=== PATIENT | male | born 1950 | race Caucasian/White ===

== ENCOUNTER 2018-02-09 21:54 | Inpatient (IN) ==
[2018-02-09] MEDS ORDERED: methylPREDNISolone 125 MG/2 ML VIAL IVP ONE (22:16)
[2018-02-09] MEDS ORDERED: Ipratropium/Albuterol Neb 3 ML IH ONE (22:16)
--- NOTE | 2018-02-09 23:04 | Emergency Department Note ---
Disposition Clinical Impression: Acute exacerbation of chronic obstructive airways disease, Abdominal aortic aneurysm (AAA) without rupture, Kidney stone on left side Community acquired pneumonia Qualifiers: Laterality: unspecified laterality Qualified Code(s): J18.9 - Pneumonia, unspecified organism Disposition: Admitted As Inpatient Condition: Good Time of Disposition: 01:21 General Adult HPI - General Stated complaint: "confirmed triple A" Time Seen by Provider: 02/09/18 21:58 Source: patient, EMS Mode of arrival: EMS Limitations: no limitations Nursing Notes Reviewed: Yes Vital Signs Reviewed: Yes - History of Present Illness HPI Narrative: 67-year-old male current smoker presents to the ED via EMS from the [place]. Patient 's initial complaint today was shortness of breath and pain in the left flank. States over the past 4 weeks he has been having a cough some chills congestion and has been gradually more short breath. He states a few of his friends around him have been getting sick with what he believes is the flu. None of him tested positive. Since then, past 2 weeks he developed cough and left side pain. Today at the [place] he had a CT of the abdomen and pelvis to evaluate his flank pain and he was found to have a 1.9 cm stone in the renal pelvis. It was incidental finding of a 5.2 cm aortic fusiform infrarenal aneurysm without signs of rupture. It extends 7.6 cm in craniocaudal plane. Patient is not aware of any history of AAA. Also on the CT there was findings concerning for infection in the left lung base. Chest x-ray was performed to better visualize which confirmed atelectasis versus possible infection. Given his symptoms he will be treated for community acquired pneumonia. He denies hematuria or dysuria. He does report to some hesitancy. On exam he is wheezing and dyspnea. He has no official diagnosis of COPD but given his history of smoking DuoNeb treatment ordered. He will be given steroids as well. States he is otherwise healthy without any medical issues. Pain Scale: 3 - Related Data Allergies Allergy/AdvReac Type Severity Reaction Status Date / Time No Known Allergies Allergy Verified 02/09/18 22:21 All systems ED: reviewed and negative except as stated. Review of Systems: As Per HPI Constitutional: Reports: chills. Denies: fever ENT ED: Reports: congestion Cardiovascular: Denies: chest pain Respiratory: Reports: cough, dyspnea Gastrointestinal: Reports: abdominal pain. Denies: nausea, vomiting Genitourinary: Denies: urgency, dysuria, hematuria, discharge Musculoskeletal: Reports: back pain Integumentary: Denies: rash, abrasion Neurological: Denies: headache Past Medical History - Past Medical History Attestation: Yes The following information was validated with the patient. Source: patient Medical history: Reports: no medical history Psychiatric history: Reports: no psych history - Social History Smoking Status: Current every day smoker Smokeless Tobacco Status: No Alcohol use: Reports: none Drug use: Reports: none Physical Exam - General Limitations: no limitations General appearance: alert, in no apparent distress - Head Head exam: atraumatic, normocephalic, normal inspection - Eye Eye exam: Present: normal appearance, PERRL, EOMI - ENT ENT exam: normal exam, normal oropharynx, mucous membranes moist - Neck Neck exam: Present: normal inspection, full ROM, trachea midline - Chest Chest inspection: Present: normal inspection, symmetric chest wall rise, tenderness (left lateral) - Respiratory Respiratory exam: Present: wheezes. Absent: respiratory distress - Cardiovascular Cardiovascular exam: Present: regular rate, normal rhythm, normal heart sounds - Abdominal Exam Abdominal exam: Present: soft (obese), Non-Tender, normal bowel sounds. Absent : tenderness, distention, guarding, rebound, rigidity, Russo's sign, Rovsing's sign, tenderness at McBurney's Point, mass, pulsatile mass - Extremities Exam Extremities exam: Present: normal inspection, full ROM. Absent: tenderness, pedal edema - Back Exam Back exam: Present: normal inspection, full ROM, CVA tenderness (L). Absent: tenderness, CVA tenderness (R) - Neurological Exam Neurological exam: Present: alert, oriented X3 - Psychiatric Psychiatric exam: Present: normal affect, normal mood - Skin Skin exam: Present: warm, dry, intact, normal color. Absent: rash, cyanosis, diaphoresis Course Course Narrative: On repeat evaluation has some scattered wheezing on the right clear on the left. Patients feeling much better. Discuss the CT findings with the patient. He would be admitted for likely community acquired pneumonia with COPD exacerbation. Treated with ceftriaxone and azithromycin. Blood cultures obtain. Urinalysis is not consistent with infection. Patients in agreement with this plan. He also has incidental finding of a 5.2 cm x 5.2 cm aortic aneurysm as well as a 1.9 cm renal pelvis stone. The admitting hospitalist is aware these findings. No emergent interventions required at this time. Patient remains in stable condition. - Consultations Consultation #1: Spoke with on-call hospitalist alejandro Davies to admit for CAP/COPD exacerbation , incidental AAA which may require inpatient vascular consult. No further orders at this time Time: 00:35 Vital Signs Temperature 98.8 F 02/09/18 22:02 Pulse Rate 103 02/09/18 22:02 Respiratory Rate 18 02/09/18 22:02 Blood Pressure 167/114 02/09/18 22:02 O2 Sat by Pulse Oximetry 95 02/09/18 22:02 Temperature 98.4 F 02/10/18 02:57 Pulse Rate 101 02/10/18 01:38 Respiratory Rate 18 02/10/18 02:57 Blood Pressure 158/96 02/10/18 02:57 O2 Sat by Pulse Oximetry 95 02/10/18 01:38 Oxygen Delivery Oxygen Delivery Room Air Medical Decision Making - MDM Narrative Medical decision making narrative: Patient was discussed with my attending physician who agrees with ED management and final disposition. They independently evaluated the patient. Please refer to their attestation to this encounter for additional information. This note was generated by [employer] voice recognition software and as a result grammatical or spelling errors may occur using this program. - Medical Records Medical records reviewed: Yes I reviewed the patient's medical records. - Lab Data Lab results reviewed: Yes I reviewed the patient's lab results. Lab results narrative: Review of the labs perform at the [place] at 1502 on 02/09/2018. Sodium 139. Potassium 3.7. Chloride 105. CO2 28. BUN 18. Creatinine 1.21. WBC 9.2. Hemoglobin 7.1. Lab Results 02/09/18 02/10/18 Range/Units 23:12 00:25 Lactic Acid 0.8 (0.5-2.2) mmol/L Urine Color Yellow (Yellow) Urine Clarity Clear (Clear) Urine pH 6.0 (5.0-8.0) pH Units Ur Specific [place] > 1.030 H (1.010-1.025) Urine Protein 30 H (Neg-Trace) mg/dL Urine Glucose (UA) Normal (Normal) mg/dL Urine Ketones Negative (Negative) mg/dL Urine Blood Large H (Negative) Urine Nitrite Negative (Negative) Urine Bilirubin Negative (Negative) Urine Urobilinogen Normal (Normal) mg/dL Ur Leukocyte Esterase Small H (Negative) Urine Microscopic RBC TNTC H (0-3) per hpf Urine Microscopic WBC 5-15 H (0-3) per hpf Ur Squamous Epith Cells Moderate H (None-Few) per lpf Urine Bacteria None Seen (None-Few) per hpf Hyaline Casts None Seen (None-Few) per lpf Ur Culture Indicated? YES A (NO) - Radiology Data Radiology results reviewed: Yes I reviewed the patient's radiology results. [facility]. Impression is infrarenal fusiform abdominal aorta aneurysm 5.2 cm AP x 5.2 cm transverse that extends for 7.6 cm in craniocaudal plan. Consider vascular surgery referral and/or 3-6 month follow up imaging. There is no periaortic stranding. Left-sided hydronephrosis with nephrolithiasis and mild stranding. Bibasilar atelectasis with streaky opacity cannot exclude superimposed infection.
[2018-02-09 23:28] LABS: Bilirubin,Urine Negative (Negative); Blood,Urine Large (Negative); Clarity,Urine Clear (Clear); Color,Urine Yellow (Yellow); Glucose,Urine (UA) Normal (Normal); Ketones,Urine Negative (Negative); Leukocyte Esterase,Urine Small (Negative); Nitrite,Urine Negative (Negative); Protein,Urine 30 mg/dL (Neg-Trace); Specific Gravity,Urine > 1.030 (1.010-1.025); Urobilinogen,Urine Normal (Normal)
[2018-02-09] MEDS ORDERED: Azithromycin 500 MG in D5% in Water 250 ML IVPB ONE (23:29)
[2018-02-09] MEDS ORDERED: cefTRIAXone 2,000 MG in Water for inj. (sterile) 20 ML 20 ML IVPB ONE (23:29)
[2018-02-09 23:30] LABS: Bacteria,Urine None Seen per hpf (None-Few); Hyaline Casts,Urine None Seen per lpf (None-Few); RBC,Urine TNTC per hpf (0-3); Squamous Epithelial Cell,Urine Moderate per lpf (None-Few)
--- NOTE | 2018-02-10 01:29 | Emergency Department Note ---
Disposition Clinical Impression: Acute exacerbation of chronic obstructive airways disease Community acquired pneumonia Qualifiers: Laterality: unspecified laterality Qualified Code(s): J18.9 - Pneumonia, unspecified organism Disposition: Admitted As Inpatient Condition: Good [facility]errals: [facility]Primary Care Provider[facility] - General Adult [facility] - General Chief complaint: ED Shortness of Breath/Dyspnea Stated complaint: "confirmed triple A" Time Seen by Provider: 02/09/18 21:58 Source: patient, EMS Mode of arrival: EMS Limitations: no limitations Nursing Notes Reviewed: Yes Vital Signs Reviewed: Yes - History of Present Illness Pain Scale: 3 - Related Data Allergies Allergy/AdvReac Type Severity Reaction Status Date / Time No Known Allergies Allergy Verified 02/09/18 22:21 Constitutional: Reports: chills. Denies: fever ENT ED: Reports: congestion Cardiovascular: Denies: chest pain Respiratory: Reports: cough, dyspnea Gastrointestinal: Reports: abdominal pain. Denies: nausea, vomiting Genitourinary: Denies: urgency, dysuria, hematuria, discharge Musculoskeletal: Reports: back pain Integumentary: Denies: rash, abrasion Neurological: Denies: headache Past Medical History - Past Medical History Medical history: Reports: no medical history Psychiatric history: Reports: no psych history - Social History Smoking Status: Current every day smoker Smokeless Tobacco Status: No Alcohol use: Reports: none Drug use: Reports: none Physical Exam - General Limitations: no limitations General appearance: alert, in no apparent distress Course Vital Signs Temperature 98.8 F 02/09/18 22:02 Pulse Rate 103 02/09/18 22:02 Respiratory Rate 18 02/09/18 22:02 Blood Pressure 167/114 02/09/18 22:02 O2 Sat by Pulse Oximetry 95 02/09/18 22:02 Temperature 98.8 F 02/09/18 22:02 Pulse Rate 103 02/09/18 22:02 Respiratory Rate 16 02/09/18 22:36 Blood Pressure 167/114 02/09/18 22:02 O2 Sat by Pulse Oximetry 95 02/09/18 22:36 Oxygen Delivery Oxygen Delivery Room Air Medical Decision Making - Lab Data Lab Results 02/09/18 02/10/18 Range/Units 23:12 00:25 Lactic Acid 0.8 (0.5-2.2) mmol/L Urine Color Yellow (Yellow) Urine Clarity Clear (Clear) Urine pH 6.0 (5.0-8.0) pH Units Ur Specific [place] > 1.030 H (1.010-1.025) Urine Protein 30 H (Neg-Trace) mg/dL Urine Glucose (UA) Normal (Normal) mg/dL Urine Ketones Negative (Negative) mg/dL Urine Blood Large H (Negative) Urine Nitrite Negative (Negative) Urine Bilirubin Negative (Negative) Urine Urobilinogen Normal (Normal) mg/dL Ur Leukocyte Esterase Small H (Negative) Urine Microscopic RBC TNTC H (0-3) per hpf Urine Microscopic WBC 5-15 H (0-3) per hpf Ur Squamous Epith Cells Moderate H (None-Few) per lpf Urine Bacteria None Seen (None-Few) per hpf Hyaline Casts None Seen (None-Few) per lpf Ur Culture Indicated? YES A (NO) Attestation Statement - Attestation Attestation: I, Eduardo Balbuena MD, personally evaluated this patient and discussed their management with the resident physician. I reviewed the resident's note and agree with the documented findings, medical decision making, and plan of care. 67-year-old male who [facility] which revealed a left lower lobe pneumonia as well as incidental findings of a large left kidney stone and a 5.2 cm abdominal aortic aneurysm. No evidence of leakage or dissection of the aneurysm. Patient was unaware of either of these findings. Patient states that about a month ago he had flu symptoms and thought he had the flu. He got over this and then about 2 weeks ago started having some left upper posterior flank pain. He has had some cough. No definite fever. This is why [place] went [place] for [place]. On examination patient is a well-developed well-nourished well-appearing elderly male in no acute distress. He is alert and oriented 3. There is no cyanosis or diaphoresis. Chest is nontender to palpation. Breath sounds are equal bilaterally with scattered bilateral expiratory wheezes. No definite rales. Heart regular rate and rhythm. Abdomen is soft and nontender with normal bowel sounds. Mild left CVA tenderness. Labs and imaging. [facility]. Urinalysis obtained here and showed blood in the urine but no infection. Lactic acid normal. The hospitalist, Dr. Calle, was consulted and accepted admission of the patient.
[2018-02-10] MEDS ORDERED: Naloxone 0.4 MG/ML INJ IVP PRN (03:12)
[2018-02-10] MEDS ORDERED: Acetaminophen 325 MG TABLET PO PRN (03:12)
[2018-02-10] MEDS ORDERED: Ipratropium/Albuterol Neb 3 ML IH PRN (03:17)
[2018-02-10] MEDS: Aspirin Enteric Coated 81 MG Tablet PO SCH ×2 (04:01→08:44)
[2018-02-10] MEDS: *HR* HYDROcodone/Acet 5/325 mg TABLET PO PRN ×3 (04:01→21:05)
[2018-02-10] MEDS: Ipratropium/Albuterol Neb 3 ML IH SCH ×4 (04:26→21:59)
[2018-02-10 04:37] LABS: Basophils % 0.2 %; Eosinophils % 0.1 %; Hematocrit 49.2 % (37.5-50.1); Hemoglobin 17.2 g/dL (12.9-16.9); Immature Granulocytes % 0.7 % (0-4); Lymphocytes # 0.4 K/mcL (0.6-4.6); Lymphocytes % 4.6 %; Mean Corpuscular Hemoglobin 31.1 pg (28.0-33.3); Mean Platelet Volume 10.5 fL (9.4-12.4); Monocytes # 0.1 K/mcL (0.0-1.3); Monocytes % 1.3 %; Neutrophils # 7.9 K/mcL (1.6-8.9); Platelet Count 316 K/mcL (140-400); Red Blood Count 5.53 M/mcL (4.19-5.50); Red Cell Distribution Width 13.2 % (11.5-14.5); Segmented Neutrophils % 93.1 %
[2018-02-10 04:59] LABS: BUN/Creatinine Ratio 15 (6-26); Blood Urea Nitrogen 16 mg/dL (8-23); Calcium 9.7 mg/dL (8.6-10.3); Carbon Dioxide 23 mEq/L (23-29); Chloride 103 mEq/L (98-107); Glucose 157 mg/dL (70-105); Osmolality,Calculated 288 (280-300); Potassium 3.7 mEq/L (3.5-5.1); Sodium 137 mEq/L (136-145); eGFR For African Americans > 60 (> 60); eGFR For Non-African Americans > 60 (> 60)
--- NOTE | 2018-02-10 05:18 | Internal Med History&Physical ---
Date of Encounter: 02/10/18 Time of Encounter: 02:00 Internal Medicine - H&P: HPI Chief complaint: Left flank pain Admitted From: Home Plans for Post Hospital Care: Home History of present illness: Mr. Jiménez is a 67 year old male transferred from [facility] to our ER for left flank pain. Past medical history is significant for hypertension, COPD. Patient said he has left-sided flank pain for 2 weeks. Patient denies a fever. Patient denies dysuria, burning on urination, or other urinating symptoms. Patient denies nausea. Patient denies chest pain. Patient to have flulike symptoms for 2 weeks with productive cough and mild shortness of breath. Patient has exertional intolerance for last 2 weeks and would like to lift head during sleep. In [facility], CAT scan shows left side kidney stone with mild hydronephrosis. Incidentally he was found abdominal aortic aneurysm with diameter of 5.2 cm. Chest x-ray shows possible left lower lobe pneumonia. CT favorite pulmonary edema. Patient was found A. fib in our ER, he has no history of A. fib. Patient has wheezing, which improved after bronchodilator. Patient was admitted for multiple medical problems including new A. fib, left renal stone with UTI, left lower lobe pneumonia, abdominal aortic aneurysm, COPD exacerbation, and possible CHF. Past Med Surg Social Fam HX - Past Medical History Medical history: no medical history Psychiatric history: no psych history - Past Surgical History Surgical History: appendectomy - Social History Smoking Status: Current every day smoker Smokeless Tobacco Status: No Alcohol use: none Drug use: none - Family History Mother History Unknown: Yes Internal Medicine - H&P: Meds 3 Allergy/AdvReac Type Severity Reaction Status Date / Time No Known Allergies Allergy Verified 02/09/18 22:21 All Systems PM: A 10-system review of systems was performed and is negative for pertinent findings except as documented above in the HPI. - Constitutional Vitals: Temp Pulse Resp BP Pulse Ox 98.5 F 108 16 143/84 98 02/10/18 04:59 02/10/18 04:59 02/10/18 04:59 02/10/18 04:59 02/10/18 04:59 General appearance: Present: A&O X 3, no acute distress, answers questions appropriately - Head Head exam: Present: atraumatic, normocephalic - Eye Eye exam: Present: PERRL, conjuntiva pink, sclera anicteric Pupils: Present: PERRL - Neck Neck exam general surgery: Present: supple, trachea midline. Absent: lymphadenopathy - Respiratory Respiratory exam: Present: CTAB, wheezes (Scattered wheezes bilaterally). Absent: accessory muscle use, rales, rhonchi - Cardiovascular Cardiovascular exam: Present: irregular rhythm, +S1, +S2. Absent: diastolic murmur, gallop, rubs, systolic murmur - GI/Abdominal GI/Abdominal exam: Present: normal bowel sounds, soft, tenderness (Milder tenderness on left upper quadrant, with CVAT positive), no peritoneal signs. Absent: distended - Extremities Exam Extremities exam: Present: pedal edema (Mild to moderate pedal edema bilaterally ), warm, radial pulses palpable and symmetrical. Absent: calf tenderness, cyanotic - Neurological Exam Neurological exam: Present: CN II-XII intact, oriented X3, no focal deficits. Absent: pronater drift, facial droop, speech deficit - Skin Skin exam: Present: dry, intact Internal Med - H&P Results - Labs CBC & Chem 7: 02/10/18 04:20 02/10/18 04:20 Labs: Short CBC 02/10/18 Range/Units 04:20 WBC 8.5 (4.3-11.1) K/mcL Hgb 17.2 H (12.9-16.9) g/dL Hct 49.2 (37.5-50.1) % Plt Count 316 (140-400) K/mcL Neutrophils # 7.9 (1.6-8.9) K/mcL BMP 02/10/18 04:20 Sodium 137 Potassium 3.7 Chloride 103 Carbon Dioxide 23 BUN 16 Creatinine 1.06 Glucose 157 H Calcium 9.7 - EKG Data -: EKG Interpreted by Myself (A. fib, heart rate 99) - Assessment and plan (1) A-fib Current Visit: Yes Status: Acute Assessment and plan: Patient was found A. fib with heart rate 99. No history of A. fib. - Place patient on continuous cardiac monitoring - CHADS-Vasc score 2, place patient on aspirin by mouth - Consult cardiology, further long-term anticoagulation per cardiology recommendation Qualifiers: Atrial fibrillation type: unspecified Qualified Code(s): I48.91 - Unspecified atrial fibrillation (2) DVT prophylaxis Current Visit: Yes Status: Acute Assessment and plan: Heparin subcutaneously (3) CHF (congestive heart failure) Current Visit: Yes Status: Acute Assessment and plan: Patient has recent exertional intolerance, leg swelling bilaterally, CT suggested pulmonary edema. Suspect CHF. - Check BNP in a.m. - Echocardiogram - Start Lasix IV 20 mg daily now, may discontinue if BNP and echo are negative Qualifiers: Heart failure type: unspecified Heart failure chronicity: acute Qualified Code(s): I50.9 - Heart failure, unspecified (4) Abdominal aortic aneurysm (AAA) without rupture Current Visit: Yes Status: Acute Assessment and plan: We will consult vascular surgeon. Non urgent, day team to call (5) Acute exacerbation of chronic obstructive airways disease Current Visit: Yes Status: Acute Assessment and plan: We will place patient on antibiotic, steroid, and bronchodilator. Continue closely monitor patient. Oxygen supportive treatment. (6) Community acquired pneumonia Current Visit: Yes Status: Acute Assessment and plan: Patient will be placed on azithromycin and Rocephin. Qualifiers: Laterality: left Lung location: lower lobe of lung Qualified Code(s): J18.1 - Lobar pneumonia, unspecified organism (7) Kidney stone on left side Current Visit: Yes Status: Acute Assessment and plan: We will consult urology, nonurgent as patient has mild hydronephrosis without leukocytosis, day shift to call (8) UTI (urinary tract infection) Current Visit: Yes Status: Acute Assessment and plan: Urinalysis shows UTI. Patient is on Rocephin now. Follow-up urine culture. Qualifiers: Urinary tract infection type: acute cystitis Hematuria presence: without hematuria Qualified Code(s): N30.00 - Acute cystitis without hematuria - Time Spent With Patient Total time spent is greater than 50% in coordination of care (as documented) at patient's floor/unit and/or counseling patient: 40 minutes Greater than 35 minutes
[2018-02-10] MEDS: *HR* Heparin 5,000 UNIT/ML VIAL SQ SCH ×2 (05:58→18:13)
--- NOTE | 2018-02-10 07:51 | Urology - Consult Note ---
Date of Encounter: 02/10/18 Time of Encounter: 07:49 - Assessment and Plan (1) Kidney stone on left side Current Visit: Yes Status: Acute Assessment and plan: Patient has a large 3 cm left renal stone. This is causing very mild hydronephrosis. Pain is currently controlled. This stone will be managed as an outpatient. He will require a percutaneous nephrolithotomy for removal of the stone. I will obtain a KUB today to see if I am able to see the stone. (2) UTI (urinary tract infection) Current Visit: Yes Status: Acute Assessment and plan: Continue antibiotics until culture returned. Sometimes large renal stones can be associated with chronic urinary tract infections. Qualifiers: Urinary tract infection type: acute cystitis Hematuria presence: without hematuria Qualified Code(s): N30.00 - Acute cystitis without hematuria (3) Hydronephrosis, left Current Visit: Yes Status: Acute Assessment and plan: mild. no urgent need for decompression with nephrostomy tube. Urology CN:HPI Consult date: 02/10/18 Reason for consult Urology: Other (left renal stone) Requesting physician: Vee Calle History of present illness: Bryce is a 67-year-old male with history of being transferred from the [place] secondary to multiple medical issues. Patient with possible pneumonia. Patient also found to have a abdominal aortic aneurysm. Patient also found to be in atrophic fibrillation. Patient was found to have a 3 cm left renal stone with minimal hydronephrosis. Patient states that his pain is currently a 0 out of 10. No nausea or vomiting. No fevers. CT scan from the [place] was personally reviewed. Patient is a current smoker and smokes roughly 1 pack per day. Past Med Surg Social Fam HX - Past Medical History Medical history: no medical history Psychiatric history: no psych history - Past Surgical History Surgical History: appendectomy - Social History Smoking Status: Current every day smoker Smokeless Tobacco Status: No Alcohol use: none Drug use: none - Family History Mother History Unknown: Yes Medications and Allergies 3 Allergy/AdvReac Type Severity Reaction Status Date / Time No Known Allergies Allergy Verified 02/09/18 22:21 Review of Systems - Constitutional no chills, no fever(s) - EENT Nose, mouth and throat: no dizziness, no headache(s) - Cardiovascular no chest pain - Respiratory dyspnea, no cough - Gastrointestinal no abdominal pain - Musculoskeletal back pain - Integumentary no erythema, no swelling - Neurological no confusion - Hematologic/Lymphatic no lymphadenopathy - Allergic/Immunologic no throat swelling Exam Initial Vital Signs Temp Pulse Resp BP Pulse Ox 98.8 F 103 18 167/114 95 02/09/18 22:02 02/09/18 22:02 02/09/18 22:02 02/09/18 22:02 02/09/18 22:02 General/Neuological: alert and oriented x 3 Eyes: normal pupils, non-icteric Neck: no lymphadenopathy noted, supple to touch, no jvd Cardiovascular: RRR, no murmurs Respiratory: normal respiratory effort, clear bilaterally ABD: soft, nontender, no masses palpated, good bowel sounds Back: no pain on percussion bilaterally : normal phallus, normal scrotum, testicles and epididymides normal, urethral meatus normal. Skin: no rashes noted Musculoskeletal: normal gait, FROMx4 Urology Results - Labs 02/10/18 04:20 02/10/18 04:20 Abnormal lab results RBC 5.53 M/mcL (4.19-5.50) H 02/10/18 04:20 Hgb 17.2 g/dL (12.9-16.9) H 02/10/18 04:20 Lymphocytes # 0.4 K/mcL (0.6-4.6) L 02/10/18 04:20 Glucose 157 mg/dL (70-105) H 02/10/18 04:20 B-Natriuretic Peptide 559 pg/mL (Less than 100) H 02/10/18 04:20 Ur Specific [place] > 1.030 (1.010-1.025) H 02/09/18 23:12 Urine Protein 30 mg/dL (Neg-Trace) H 02/09/18 23:12 Urine Blood Large (Negative) H 02/09/18 23:12 Ur Leukocyte Esterase Small (Negative) H 02/09/18 23:12 Urine Microscopic RBC TNTC per hpf (0-3) H 02/09/18 23:12 Urine Microscopic WBC 5-15 per hpf (0-3) H 02/09/18 23:12 Ur Squamous Epith Cells Moderate per lpf (None-Few) H 02/09/18 23:12 Ur Culture Indicated? YES (NO) A 02/09/18 23:12 Diabetes panel 02/10/18 Range/Units 04:20 Sodium 137 (136-145) mEq/L Potassium 3.7 (3.5-5.1) mEq/L Chloride 103 (98-107) mEq/L Carbon Dioxide 23 (23-29) mEq/L BUN 16 (8-23) mg/dL Creatinine 1.06 (0.70-1.30) mg/dL Glucose 157 H (70-105) mg/dL Calcium 9.7 (8.6-10.3) mg/dL Thyroid panel 02/10/18 Range/Units 04:20 TSH 0.680 (0.340-5.600) mcIU/mL Calcium panel 02/10/18 Range/Units 04:20 Calcium 9.7 (8.6-10.3) mg/dL Pituitary panel 02/10/18 Range/Units 04:20 Sodium 137 (136-145) mEq/L Potassium 3.7 (3.5-5.1) mEq/L Chloride 103 (98-107) mEq/L Carbon Dioxide 23 (23-29) mEq/L BUN 16 (8-23) mg/dL Creatinine 1.06 (0.70-1.30) mg/dL Glucose 157 H (70-105) mg/dL Calcium 9.7 (8.6-10.3) mg/dL TSH 0.680 (0.340-5.600) mcIU/mL Adrenal panel 02/10/18 Range/Units 04:20 Sodium 137 (136-145) mEq/L Potassium 3.7 (3.5-5.1) mEq/L Chloride 103 (98-107) mEq/L Carbon Dioxide 23 (23-29) mEq/L BUN 16 (8-23) mg/dL Creatinine 1.06 (0.70-1.30) mg/dL Glucose 157 H (70-105) mg/dL Calcium 9.7 (8.6-10.3) mg/dL All other labs normal. - Imaging CT scan - abdomen: image reviewed CT scan - pelvis: image reviewed Consult Discharge Plan - Plan
[2018-02-10] MEDS: Furosemide 20 MG/2 ML VIAL IVP SCH (08:44)
[2018-02-10] MEDS: predniSONE 20 MG TABLET PO SCH (08:44)
[2018-02-10] MEDS ORDERED: *HR* Metoprolol 5 MG/5 ML VIAL IVP ONE (10:44)
--- NOTE | 2018-02-10 12:50 | Cardiology Consult Note ---
<JalenObey Magali - Last Filed: 02/10/18 13:15> Date of Encounter: 02/10/18 Time of Encounter: 08:45 Assessment and Plan (1) Paroxysmal atrial fibrillation Current Visit: Yes Status: Acute New onset Paroxysmal A. fib - currently rate controlled - has had a few episodes of increased HR, but mainly remaining in 90-100's Never been diagnosed before, but per history it sounds like its been going on for quiet some time Etiology unclear at this time: secondary to stress in setting of infection, cardiac risk/possible ischemia, possible NATTY Plan: - stop hydralazine as this can lead to relfex tachycardia - start Metoprolol 50 mg BID - NM stress in AM - Echo pending - further recommendations pending stress and echo results (2) CHF (congestive heart failure) Current Visit: Yes Status: Suspected Suspected CHF - LE edema, crackles on exam, possible pulmonary edema Difficult to definitively determine currently in the setting of COPD exacerbation and PNA Continue current diuresis, check I&O's, daily weights Echo pending Qualifiers: Heart failure type: unspecified Heart failure chronicity: acute Qualified Code(s): I50.9 - Heart failure, unspecified (3) HTN (hypertension) Current Visit: Yes Status: Acute BP elevated 160's/110's - need to treat in the setting of AAA Start Metoprolol 50mg BID Qualifiers: Hypertension type: essential hypertension Qualified Code(s): I10 - Essential (primary) hypertension (4) Abdominal aortic aneurysm (AAA) without rupture Current Visit: Yes Status: Acute 5.2 cm. Management per vascular team (5) Community acquired pneumonia Current Visit: Yes Status: Acute Management per primary team Qualifiers: Laterality: left Lung location: lower lobe of lung Qualified Code(s): J18.1 - Lobar pneumonia, unspecified organism (6) Acute exacerbation of chronic obstructive airways disease Current Visit: Yes Status: Acute Management per primary team Discussion w patient/family: The assessment and plan as outlined above was discussed with the patient and/or family members who expressed understanding and agreement. All questions were answered. Thank you for involving us in the care of your patient. Please call with any questions. History of Present Illness Consult date: 02/10/18 Requesting physician: Vee Calle Consult reason: A. fib Chief complaint: Left flank pain History of present illness: Mr. Jiménez is a 67 year old male with PMH of HTN and COPD, transferred to [facility] from the [place] for left flank secondary to renal stone. Incidentally found to have 5.2cm abdominal aortic aneurysm. CXR and chest CT concerning for PNA or pulmonary edema. He was also having a 2 week history of exertional dyspnea and mild LE edema. Reports a history of intermittent palpitations that seem to happen more after exertion, but resolve with rest, hydration, and eating salt. Denies light-headedness or chest pain/pressure. Previously he was very active but has become less active over the past few years. He states he has not been following with any medical provider for several years. Past Med Surg Social Fam HX - Past Medical History Medical history: COPD, hypertension Psychiatric history: no psych history - Past Surgical History Surgical History: appendectomy - Social History Smoking Status: Current every day smoker Smokeless Tobacco Status: No Alcohol use: none Drug use: none - Family History Mother History Unknown: Yes Medications and Allergies Naproxen Sodium [Aleve] 220 mg PO BID PRN 02/10/18 [History] 3 Allergy/AdvReac Type Severity Reaction Status Date / Time No Known Allergies Allergy Verified 02/10/18 07:57 All Systems Review: The remainder of the systems were reviewed and are negative Physical Examination Vital Signs, Last 4 Hours Temp Pulse Resp BP Pulse Ox 02/10/18 11:09 98.2 F 105 22 156/97 93 02/10/18 10:47 18 95 02/10/18 08:45 93 General: Conversant, No Apparent Distress HEENT: Atraumatic, Normocephaly, Mucus Membranes Moist Neck: No JVD, Normal carotid pulses Cardiac: Normal S1 and S2, No Murmur, Other (Irregularly irregular, tachycardia) Lungs: Normal Breath Sounds, Other (Wheezes throughout lung reza) Neuro: Alert and responsive, No focal deficits noted Abdomen: Soft, Non-Tender Skin: No rashes noted on visualized skin Musculoskeletal: No Chest Wall Tenderness Extremities: No Clubbing, No Cyanosis, Normal Pulses, Other (Bilateral pitting edema) Results 02/10/18 04:20 02/10/18 04:20 Consult Discharge Plan - Plan [facility]: [facility]Primary Care Provider[facility] - <Ayo Hooper - Last Filed: 02/11/18 18:54> Date of Encounter: 02/10/18 Time of Encounter: 20:00 - Attending Attestation I examined this patient and my medical decision-making was reviewed with the Resident Physician. I agree with the documented findings, disposition and treatment plan as described except to the extent set forth below. CC: Left flank pain, shortness of breath Pt presented to [place] for evaluation of left flank pain, found to have left ureteral stone. Incidental findings included AAA at 5.2 cm, and new atrial fib with RVR. Pt also found to have uncontrolled hypertension. He reports episodes of heart racing associated with shortness of breath, not assoicated with chest pain, lasting up to 30 mins, usually relieved with rest. 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 He has no previous cardiac history, has not seen a physician in over ten years. PMH: reviewed PE: reviewed findings above, agree, unable to palpate AAA IMP: 1. A fib with RVR, of unclear duration, IV metoprolol now, monitor results, order Echo, eval LV/LA chamber size and function, further recs pending cardiac imaging. 2. left ureteral lithiasis: evaluation in progress, not a candidate for systemic anticoagulation 3. AAA ; vascular surgery consultation ordered. 4. Hypertension: not well controlled, monitor with addition of beta blockade 5. CAD - multiple risk factors, stress test if can control heart rate response and blood pressure Assessment and Plan Discussion w patient/family: The assessment and plan as outlined above was discussed with the patient and/or family members who expressed understanding and agreement. All questions were answered. Thank you for involving us in the care of your patient. Please call with any questions. History of Present Illness History of present illness: Mr. Jiménez is a 67 year old male All Systems Review: The remainder of the systems were reviewed and are negative Physical Examination Vital Signs, Last 4 Hours Temp Pulse Resp BP Pulse Ox 02/11/18 07:45 97.6 F 111 20 140/114 89 Results 02/11/18 09:14 02/11/18 11:44 Lab Results 02/11/18 06:57 Troponin I 3.51 H*
--- NOTE | 2018-02-10 14:54 | Event Note ---
Date of Encounter: 02/10/18 Time of Encounter: 14:54 patient with large left renal 3cm stone. will need f/u in our office to discuss left pcnl. we will arrange f/u. will sign off.
--- NOTE | 2018-02-10 16:59 | Electrocardiograph Report ---
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
--- NOTE | 2018-02-10 17:28 | Event Note ---
Date of Encounter: 02/10/18 Time of Encounter: 11:00 Patient evaluated by settlement processor earlier this morning and also by myself 1. Paroxysmal atrial fibrillation Cardiology following with recommendations for beta danny and stress tests; echocardiogram pending 2. CHF Echocardiogram pending as above 3. Aortic abdominal aneurysm 5.2 cm in greatest dimension; vascular consult 4. Pneumonia Continue ceftriaxone and azithromycin 5. COPD exacerbation Continue dual nebs and prednisone
[2018-02-10] MEDS: cefTRIAXone 1,000 MG in Water for inj. (sterile) 20 ML 10 ML IVPB SCH (18:13)
[2018-02-10] MEDS: Azithromycin 500 MG in D5% in Water 250 ML IVPB SCH (20:01)
[2018-02-11] MEDS ORDERED: *HR* OxyCODONE Immed Rel 5 MG TABLET PO ONE (00:31)
[2018-02-11] MEDS: Ipratropium/Albuterol Neb 3 ML IH SCH ×4 (03:15→21:22)
[2018-02-11] MEDS: *HR* Metoprolol 5 MG/5 ML VIAL IVP PRN ×2 (04:00→13:50)
[2018-02-11] MEDS: *HR* HYDROcodone/Acet 5/325 mg TABLET PO PRN (04:00)
[2018-02-11] MEDS ORDERED: Regadenoson 0.4 MG/5 ML SYRINGE IVP ONE (05:27)
[2018-02-11] MEDS: *HR* Heparin 5,000 UNIT/ML VIAL SQ SCH (05:41)
[2018-02-11] MEDS ORDERED: *HR* Heparin 5,000 UNIT/ML VIAL IVP PRN (08:43)
[2018-02-11] MEDS ORDERED: *HR* Heparin 5,000 UNIT/ML VIAL IVP ONE (08:43)
[2018-02-11 09:26] LABS: Hematocrit 47.7 % (37.5-50.1); Hemoglobin 16.2 g/dL (12.9-16.9); Mean Corpuscular Hemoglobin 30.6 pg (28.0-33.3); Mean Corpuscular Volume 90.2 fL (83.0-100.0); Mean Platelet Volume 10.4 fL (9.4-12.4); Platelet Count 335 K/mcL (140-400); Red Blood Count 5.29 M/mcL (4.19-5.50); Red Cell Distribution Width 13.9 % (11.5-14.5)
[2018-02-11] MEDS ORDERED: Aspirin 325 MG TABLET PO ONE (09:29)
[2018-02-11] MEDS ORDERED: Aspirin 325 MG TABLET PO SCH (09:30)
[2018-02-11 09:33] LABS: INR 1.1; Prothrombin Time 11.9 Seconds (9.4-12.1)
[2018-02-11 09:35] LABS: Activated Partial Thrombo Time 30.3 Seconds (26.0-36.0)
[2018-02-11] MEDS: predniSONE 20 MG TABLET PO SCH (09:41)
[2018-02-11] MEDS: Furosemide 20 MG/2 ML VIAL IVP SCH (09:42)
[2018-02-11] MEDS: Aspirin Enteric Coated 81 MG Tablet PO SCH (09:42)
[2018-02-11] MEDS: Heparin 25,000 UNIT/500 ML D5W 25,000 UNIT/500 ML BAG IVC SCH (10:06)
--- NOTE | 2018-02-11 10:25 | Pre-Sedation Evaluation ---
Pre-sedation evaluation - Pre-sedation checklist Date of procedure: 02/11/18 Procedure: C Recent Vitals: Last Vital Signs Temp 97.6 F 02/11/18 07:45 Pulse 111 02/11/18 07:45 Resp 20 02/11/18 10:22 BP 140/114 02/11/18 10:22 Pulse Ox 89 02/11/18 10:22 H&P (including ROS) documented in medical record: Yes Previous reaction to sedatives/anesthetics: Unknown Dietary Status: NPO after Midnight Dentition: No loose teeth or bridges ASA Classification *see protocol: CLASS II-Mild systemic disease
[2018-02-11] MEDS ORDERED: Aspirin 81 MG TAB.CHEW PO ONE (11:34)
[2018-02-11] MEDS ORDERED: Ondansetron 4 MG/2 ML VIAL IVP PRN (11:35)
[2018-02-11] MEDS ORDERED: Heparin 1,000 UNITS/500 mL 500 ML ONE (11:48)
[2018-02-11] MEDS ORDERED: 0.9 % Sodium Chloride 1,000 ML ONE ×2 (11:48→12:12)
[2018-02-11] MEDS ORDERED: ISOVUE-370 200 ML INFUS..BTL IV ONE (11:49)
[2018-02-11] MEDS ORDERED: *HR* Heparin 10,000 UNIT/10 ML VIAL ONE (11:49)
[2018-02-11] MEDS ORDERED: Nitroglycerin 1,000 MCG/10 ML VIAL IV ONE (11:56)
[2018-02-11] MEDS ORDERED: Ondansetron 4 MG/2 ML VIAL IVP SCH (12:00)
[2018-02-11] MEDS ORDERED: *HR* FentaNYL (PF) 100 MCG/2 ML VIAL ONE (12:12)
[2018-02-11] MEDS ORDERED: *HR* Midazolam HCl 2 MG/2 ML VIAL ONE (12:12)
[2018-02-11 12:39] LABS: BUN/Creatinine Ratio 21 (6-26); Blood Urea Nitrogen 29 mg/dL (8-23); Calcium 9.5 mg/dL (8.6-10.3); Carbon Dioxide 22 mEq/L (23-29); Chloride 101 mEq/L (98-107); Glucose 139 mg/dL (70-105); Osmolality,Calculated 288 (280-300); Sodium 135 mEq/L (136-145); eGFR For African Americans > 60 (> 60); eGFR For Non-African Americans 51 (> 60)
--- NOTE | 2018-02-11 13:14 | Invasive Diagnostic Lab Proc ---
Name: Bryce Jiménez Date of Study: 02/11/2018 Date: 1950 Ht: 72.0in Medical Record#: [id number] Age: 67 Wt: 220.90lb Gender: Male BSA: 2.22 Order #: [id number] BMI: 29.92 Physicians Procedure Physician: Caleb Chase MD Referring MD: Referring MD: Staff Name Position Time In Batool Diaz RT Monitor 12:32 PM Melissa Galeas RN Recreation Attendant 12:32 PM Alexia Hoyos RT (R) Scrub 12:32 PM Indications Indication Non-Stemi Procedures Performed Procedure CORONARY ARTERY ANGIO S&I Pre-Procedure Checklist Informed consent is complete signed and on chart. H&P is on chart. ID band is on and ID verified with patient. Patient NPO for procedure The procedure was described for the patient and questions were answered. Blood Pressure: 162/118 ECG is on chart. Rhythm: Atrial Fibrillation Plan of Care Patient will tolerate the procedure without complications. Adequate level of comfort will be maintained. Hemodynamics will remain stable Patient will recover from procedure without complications. Respiratory function will be maintained. Cardiac rhythm will remain stable. Patient temperature will be maintained. Patient and/or family have verbalized understanding of the procedure. Patient Education Chief Complaint/Reason for Test: Cardiac Cath Developmental Category: Adult (18-64 years) Developmentally Appropriate for Age: Yes Learning Barriers: None Education Needs: Procedure Education Method: Verbal Information Taught: Cardiac Cath Educational Evaluation: Able to repeat information Intravenous Access Time IV Size Location DC'd Fluid/Drip Rate Units RN 20g 1 /" Patent On Arrival Allergies No Known Allergies Vital Signs Time BP (mmHg) HR (bpm) O2 Sat. RR (bpm) LOC 12:33 PM / % 5 = Fully awake and oriented or at pre-proc level 12:33 PM / % 4 = Oriented but drowsy 12:28 PM 162 / 118 94 93 % 12:33 PM 150 / 108 97 93 % 12:38 PM 138 / 96 80 94 % 12:43 PM 141 / 106 90 95 % 12:48 PM 145 / 108 83 95 % 12:53 PM 149 / 115 82 94 % Procedural Medications Time Medication Dose Units Method Given By 12:32 PM Oxygen 2 L/min nasal cannula Melissa Galeas RN 12:32 PM Versed 1 mg Intravenous Melissa Galeas RN 12:33 PM Fentanyl 50 mcg Intravenous Melissa Galeas RN 12:41 PM Lidocaine 2% 10 ml Subcutaneous Caleb Chase MD ASA Classification: CLASS II- Mild systemic disease (i.e. well-controlled diabetes, hypertension, asthma, cigarette smoking) Ashish Score Preprocedure Postprocedure Activity 2- Moves 4 extremities sustained head lift Activity 2- Moves 4 extremities sustained head lift Circulation 2- SBP +/= 20 points of pre-anesthetic level Circulation 2- SBP +/= 20 points of pre-anesthetic level Consciousness 2- Awake and alert oriented x 3 Consciousness 2- Awake and alert oriented x 3 O2 Saturation 2- Able to maintain O2 satruation of 92% on room air O2 Saturation 2- Able to maintain O2 satruation of 92% on room air Respiratory 2- Able to deep breathe and cough well Respiratory 2- Able to deep breathe and cough well Total Score 10 Total Score 10 Contrast Agent: Isovue Diagnostic Contrast: 72 ml Total Contrast: 72 ml Fluoro Dose: 749 mGy Procedure Log Time Note Enter By 12:27 PM CathStat 12:27 PM Vitals capture started with the following parameters, Patient=Adult, Interval=5 min, Initial Oijjgsvr=361 mmHg, Deflation Rate=5 mmHg, Cuff placed on Right Arm 12:28 PM HR=94 bpm, AVQO=439/118 mmhg, SpO2=93 % 12:32 PM Pt arrived to dairy and food laboratory assistant 2 at 12:31 scoates 12:32 PM Batool Diaz RT Position: Monitor Time in: 12:32 scoates 12:32 PM Melissa Galeas RN Position: Recreation Attendant Time in: 12:32 scoates 12:32 PM Alexia Hoyos RT (R) Position: Scrub Time in: 12:32 scoates 12:32 PM Patient charges- Angio tray pack, Navilyst 3mm J, Pulse Oximetry and ACIST tubing and transducer scoates 12:32 PM Case Delayed No scoates 12:32 PM Hair removed from procedure site in procedure lab using clippers. Bilateral groin prepped with Chloraprep by Melissa Galeas RN, then patient was draped. Skin intact. scoates 12:32 PM Physician arrived 12:32 scoates 12:32 PM ASA Class CLASS II- Mild systemic disease (i.e. well-controlled diabetes, hypertension, asthma, cigarette smoking) scoates 12:32 PM Meet and greet completed scoates 12:32 PM Sign in performed according to hospital policy. scoates 12:32 PM Procedure start 12:32 scoates 12:32 PM Time: 12:32 Oxygen on at 2 L/min per nasal cannula by Melissa Galeas RN scoates 12:33 PM Time: 12:32 Versed 1 mg Intravenous Given by Melissa Galeas RN scoates 12:33 PM Time: 12:33 Fentanyl 50 mcg Intravenous Given by Melissa Galeas RN scoates 12:33 PM Time: 12:33 Patient comfortable and pain free: Yes scoates 12:33 PM Time: 12:33LOC: 5 = Fully awake and oriented or at pre-proc level scoates 12:33 PM Clinical Presentation: Non-STEMI scoates 12:33 PM HR=97 bpm, YZDX=605/108 mmhg, SpO2=93 % 12:38 PM HR=80 bpm, QSQT=410/96 mmhg, SpO2=94 % 12:39 PM Pressure channel 1 zeroed. 12:41 PM Time out performed according to hospital policy scoates 12:41 PM Time: 12:41 10 ml Lidocaine 2% to right groin Subcutaneous Given by Caleb Chase MD scoates 12:42 PM Micro-Introducer Kit utilized for sheath placement scoates 12:43 PM HR=90 bpm, MNVV=850/106 mmhg, SpO2=95.0 % 12:44 PM Access obtained by percutaneous puncture. 6Fr 10cm Terumo Stanton sheath placed in right Femoral artery. [id number] scoates 12:45 PM Bolus angiogram of left Femoral complete: hand injection scoates 12:45 PM 5Fr FR 4 catheter inserted over the wire DNC scoates 12:45 PM wire removed scoates 12:45 PM RCA angiography performed in multiple views. scoates 12:47 PM Catheter removed scoates 12:47 PM 5Fr FL 4 catheter inserted over the wire DNC scoates 12:47 PM wire removed scoates 12:47 PM LCA angiography performed in multiple views. scoates 12:48 PM Time: 12:33 Patient comfortable and pain free: Yes scoates 12:48 PM Time: 12:33LOC: 4 = Oriented but drowsy scoates 12:48 PM HR=83 bpm, MSMV=362/108 mmhg, SpO2=95.0 % 12:48 PM Recorded Pressure: Ao, BF=028, Condition=Condition 1 (Aorta) Ao 151/114/131 12:49 PM Catheter removed scoates 12:50 PM 5Fr FL5 catheter inserted over the wire [id number] scoates 12:50 PM wire removed scoates 12:51 PM LCA angiography performed in multiple views. scoates 12:53 PM Catheter removed scoates 12:53 PM HR=82 bpm, NZVN=113/115 mmhg, SpO2=94.0 % 12:53 PM Lesion found in Proximal LAD. Pre Stenosis: 25 Pre KATHERIN Flow: scoates 12:53 PM Lesion found in Mid LAD. Pre Stenosis: 25 Pre KATHERIN Flow: scoates 12:54 PM Lesion found in Proximal RCA. Pre Stenosis: 100 Pre KATHERIN Flow: scoates 12:54 PM Left Main Coronary Artery with 0% stenosis scoates 12:54 PM Proximal Left Anterior Descending Coronary Artery with 25% stenosis. If graft is supplying this territory, 0 % stenosis. scoates 12:54 PM Mid/Distal Left Anterior Descending Coronary Artery and diagonal branches with 25% stenosis. If graft is supplying this area, 0 % stenosis scoates 12:54 PM Circumflex, Obtuse Marginal, Left Posterior Descending, and Left Posterolateral Coronary Arteries with 0 % stenosis. If graft is supplying this area, 0 % stenosis scoates 12:54 PM Right Coronary, Right Posterior Descending Arteries with Right Posterolateral and Acute Marginal branches with 100 % stenosis. If graft is supplying this area, 0 % stenosis scoates 12:54 PM Ramus with 0% stenosis. If graft is supplying this area, 0 % stenosis scoates 12:55 PM unable to cross valve into LV scoates 12:56 PM Procedure completed at 12:56 scoates 12:56 PM Did you address KATHERIN flow and Dominance? Yes scoates 12:56 PM Sign out completed: Radiation Dose 749.01 mGy Fluoro Time: 4.5 Isovue 370 - 200ml contrast 72 ml given by Caleb Chase MD. Complications: NoneCardiac Rehab Consult needed: YesConfirmed administered medications: Yes scoates 12:56 PM Isovue 370 - 200ml,1 Bottle(s) used. scoates 12:58 PM Arterial sheath pulled, Angio-seal closure device used and was Successful [id number] S/N. scoates 12:58 PM Estimated Blood Loss: minimal scoates 12:58 PM Post ECG Atrial Fibrillation scoates 12:58 PM Post Blood Pressure 149/115 scoates 12:58 PM 12:58 Post Pulses Bilateral DP & PT 1+ scoates 12:58 PM Information taught Cardiac Cath and Angioseal scoates 12:58 PM Education needs Procedure, Plan of Care, and Responsibilities of Patient in Care scoates 12:58 PM Learning barriers :None scoates 12:58 PM Education Methods Verbal scoates 12:58 PM Education evaluation Able to repeat information scoates 12:59 PM Site status No bleeding/hematoma - Rt Groin as reported by Alexia Hoyos RT (R) at 12:58 scoates 12:59 PM Opsite applied scoates 01:02 PM Report given to Bibi ROJAS Pt taken to [facility] Room #33. 13:01 scoates 01:02 PM Plavix, Effient or Brilinta given No scoates 01:02 PM Delay to floor No scoates 01:02 PM Patient out of room: 13:02 scoates 01:02 PM no family at this time scoates 01:02 PM Complications: None scoates 01:02 PM Fluoro Time: 4.5 scoates 01:02 PM Isovue 370 - 200ml contrast 72 ml given by Caleb Chase. scoates 01:02 PM Radiation Dose 749.01 mGy scoates 01:07 PM Coronary Dominance: right scoates Complications Complication None None Hemodynamics Pressures Site Systolic/A Wave Diastolic/V Wave Mean AO 151 114 131 Post Procedure Information Blood Pressure: 149/115 mmHg Rhythm: Atrial Fibrillation Post procedural instructions were given Closure Device Time Device Success/Fail Angio-Seal VIP Successful Site Checks Time Location Status Staff Sheath In? Note 12:58 PM Rt Groin No bleeding/hematoma Alexia Hoyos RT (R) Pulses Time Site Pre-Procedure Post-Procedure Note Bilateral DP 2+ Bilateral PT 1+ Bilateral radial 2+ 12:58:00 PM Bilateral DP & PT 1+ Updated by Melissa Castillo RN on 02/11/2018 1:08:52 PM electronically signed on 02/11/2018 1:09:49 PM with status of Final
--- NOTE | 2018-02-11 13:15 | Event Note ---
<Obey Rao R - Last Filed: 02/11/18 13:46> Date of Encounter: 02/11/18 Time of Encounter: 08:45 - Cardiology Event Note Troponin elevated at 3.51. Discussed with patient the need for LHC instead of stress test today. R/B/C discussed with the patient and he agreeable to proceed. Discussed LHC results with Dr. Chase. 100% blockage in RCA, but with good collateral blood flow. No significant disease in LCA. No intervention needed. HPI: Pt still remains dyspnic today, but O2 sat is mostly maintained on room air. Pt reports he feels very tired. Denies chest pain/pressure, palpitations, light-headedness, N/V, or LE edema. HR remains in A. fib and borderline elevated 90-100's. BP remains 140's/110's. PE: NAD, A&Ox3. HR irregular. Lungs with wheezes. LE edema improving. JUAN: LVEF 30% with global LV systolic dysfunction, normal RV structure and function, mild-moderate MR, mild pulmonary HTN. A/P: - A. fib: HR still mildly elevated 90-100's. Increase Metoprolol to 100mg BID - Systolic CHF: Continue diuresis. Hold on ACEI for now with worsening renal function. I/O's, daily weight, salt and fluid restriction - CAD: continue ASA, BB. Add statin therapy and increase to high intensity as tolerated. No intervention in LHC - HTN: increase BB as above - AAA: per vascular - PNA: per primary team <Ayo Hooper - Last Filed: 02/13/18 19:34> Date of Encounter: 02/11/18 Time of Encounter: 18:45 Attestation: I examined this patient and my medical decision-making was reviewed with the Resident Physician. I agree with the documented findings, disposition and treatment plan as described except to the extent set forth below. CC: shortness of breath Pt reports still short of breath but breathing easier, minimal discomfort at cath site, no bleeding. PE: reviewed, agree with above Cath film reviewed IMP 1. Severe single vessel disease with good collaterals, not a candidate for revascularization, will maximize medical tx. 2. Atrial fib with controlled ventricular response, monitor on increased metoprolol 3. CHF - acute systolic heart failure, improved with gentle diuresis,now on hold due to acute on chronic kidney injury.
[2018-02-11] MEDS ORDERED: *HR* Metoprolol 5 MG/5 ML VIAL IVP ONE (15:52)
[2018-02-11] MEDS ORDERED: *HR* LORazepam 0.5 MG TABLET PO ONE (16:26)
[2018-02-11] MEDS ORDERED: Labetalol 200 MG in D5% in Water 250 ML IVC SCH (17:30)
[2018-02-11] MEDS: cefTRIAXone 1,000 MG in Water for inj. (sterile) 20 ML 10 ML IVPB SCH (18:04)
[2018-02-11] MEDS: Azithromycin 500 MG in D5% in Water 250 ML IVPB SCH (20:08)
--- NOTE | 2018-02-11 20:13 | Internal Med Progress Note ---
Date of Encounter: 02/11/18 Time of Encounter: 16:00 - Assessment and plan (1) Community acquired pneumonia Current Visit: Yes Status: Acute Assessment and plan: Will continue azithromycin and Rocephin. Qualifiers: Laterality: left Lung location: lower lobe of lung Qualified Code(s): J18.1 - Lobar pneumonia, unspecified organism (2) Acute exacerbation of chronic obstructive airways disease Current Visit: Yes Status: Acute Assessment and plan: Secondary to community acquired pneumonia Continue dual nebs and prednisone (3) CHF (congestive heart failure) Current Visit: Yes Status: Suspected Assessment and plan: Patient has recent exertional intolerance, leg swelling bilaterally, CT suggested pulmonary edema. Cardiology consulted and left heart catheterization done which showed high percent blockage of RCA but patient with good collateral blood flow therefore no intervention needed. Transesophageal echocardiogram show LVEF of 30% with global left ventricular systolic dysfunction Recommendations for IV diuresis Qualifiers: Heart failure type: unspecified Heart failure chronicity: acute Qualified Code(s): I50.9 - Heart failure, unspecified (4) A-fib Current Visit: Yes Status: Acute Assessment and plan: Cardiovascular recommendations to increased dose of beta danny for rate control Qualifiers: Atrial fibrillation type: unspecified Qualified Code(s): I48.91 - Unspecified atrial fibrillation (5) Abdominal aortic aneurysm (AAA) without rupture Current Visit: Yes Status: Acute Assessment and plan: We will consult vascular surgeon. (6) Kidney stone on left side Current Visit: Yes Status: Acute Assessment and plan: Urology consult with recommendations for outpatient follow-up (7) UTI (urinary tract infection) Current Visit: Yes Status: Acute Assessment and plan: Urinalysis shows UTI. Patient is on Rocephin now. Follow-up urine culture. Qualifiers: Urinary tract infection type: acute cystitis Hematuria presence: without hematuria Qualified Code(s): N30.00 - Acute cystitis without hematuria (8) DVT prophylaxis Current Visit: Yes Status: Acute Assessment and plan: Heparin subcutaneously - Time Spent With Patient Total time spent is greater than 50% in coordination of care (as documented) at patient's floor/unit and/or counseling patient: - Subjective Interval history: Patient with no issues or complaints Blood pressures continue to be high however - Constitutional Vitals: Temp Pulse Resp BP Pulse Ox 98.0 F 91 22 120/74 92 04/13/18 18:54 02/11/18 18:54 02/11/18 18:54 02/11/18 18:54 02/11/18 18:54 General appearance: Present: A&O X 3, no acute distress, answers questions appropriately - Respiratory Respiratory exam: Present: CTAB. Absent: accessory muscle use, rales, rhonchi, wheezes - Cardiovascular Cardiovascular exam: Present: RRR, +S1, +S2. Absent: diastolic murmur, gallop, rubs, systolic murmur Internal Medicine: Result - Labs CBC & Chem 7: 02/11/18 09:14 02/11/18 11:44 Labs: Short CBC 02/11/18 Range/Units 09:14 WBC 14.5 H D (4.3-11.1) K/mcL Hgb 16.2 (12.9-16.9) g/dL Hct 47.7 (37.5-50.1) % Plt Count 335 (140-400) K/mcL BMP 02/11/18 11:44 Sodium 135 L Potassium 4.0 Chloride 101 Carbon Dioxide 22 L BUN 29 H Creatinine 1.39 H Glucose 139 H Calcium 9.5 Cardiac Enzymes 02/11/18 Range/Units 06:57 Troponin I 3.51 H* (< 0.04) ng/mL - ABG Interpretation ABG results: PT/INR, D-dimer PT 11.9 Seconds (9.4-12.1) 02/11/18 09:14 Consult Discharge Plan - Plan [facility]: [facility] [Primary Care Provider[facility] -
[2018-02-12 00:54] LABS: Chol/HDL Ratio 4.3 (0-4.9)
[2018-02-12] MEDS: Ipratropium/Albuterol Neb 3 ML IH SCH ×4 (03:29→21:53)
--- NOTE | 2018-02-12 08:03 | Cardiology Progress Note ---
Date of Encounter: 02/12/18 Time of Encounter: 08:00 Assessment and Plan (1) NSTEMI (non-ST elevated myocardial infarction) Current Visit: Yes Status: Acute Troponin 3.51. [facility] 02/11/18: occluded pRCA with collateral from LCA to RCA; otherwise mild, non- obstructive CAD. Medical mgmt recommended. Consider high-risk PCI with symptoms. TTE 02/10/18: LVEF 30%, severe global LV systolic dysfunction, mild cLVH, mild- moderate MR. Denies chest pain or discomfort. No issues with cath site. Cardiac rehab consult. Continue heparin gtt for 24 hours. Continue asa, BB. Will change zocor to atorvastatin. Recommend prn NTG at discharge. (2) CHF (congestive heart failure) Current Visit: Yes Status: Suspected LVEF 30% with severe global systolic dysfunction, mild cLVH, mild-moderate MR. Chronicity unclear. Likely non-ischemic (?tachycardia); CAD out of proportion to cardiomyopathy. Will change betablocker to Toprol XL d/t CHF. Overall, rate is controlled. Consider addition of ACEi if renal function/BP will allow. Mild volume overload on exam--bibasilar crackles. Cumulative I&O: +328 mL. Cautious diuresis. Strict I&O's, daily weight, Na/fluid restriction diet. Qualifiers: Heart failure type: systolic Heart failure chronicity: acute Qualified Code(s): I50.21 - Acute systolic (congestive) heart failure (3) A-fib Current Visit: Yes Status: Acute Newly diagnosed atrial fibrillation, patient reports palpitations for "years." TSH normal. LVEF 30%, mild-moderate MR. Rate is adequately controlled, continue BB. Avg HR=77 overnight. CHA2Ds Vasc= (4, age/CHF/CAD/HTN); recommend full AC when felt safe to start from Urology standpoint (hydronephrosis). Recommend starting Eliquis 5 mg BID when able, patient is agreeable. Qualifiers: Atrial fibrillation type: unspecified Qualified Code(s): I48.91 - Unspecified atrial fibrillation (4) Community acquired pneumonia Current Visit: Yes Status: Acute Management per primary team Qualifiers: Laterality: left Lung location: lower lobe of lung Qualified Code(s): J18.1 - Lobar pneumonia, unspecified organism (5) Abdominal aortic aneurysm (AAA) without rupture Current Visit: Yes Status: Acute Incidental finding, 5.2 cm. Management per vascular team Discussion w patient/family: The assessment and plan as outlined above was discussed with the patient and/or family members who expressed understanding and agreement. All questions were answered. Thank you for involving us in the care of your patient. Please call with any questions. The patient was discussed and reviewed with Dr. Hooper who agrees with plan as stated above. Subjective Principal diagnosis: NSTEMI, PAF, CHF, PNA, AAA Interval history: Seen and examined. No complaints overnight. No chest pain reported. No issues with cath site. Reports breathing remains labored, improved. Continues to have orthopnea Objective Vital Signs, Last 4 Hours Temp Pulse Resp BP Pulse Ox 02/12/18 07:24 98.1 F 76 18 128/91 94 02/12/18 04:46 76 18 94 General: Conversant, No Apparent Distress HEENT: Atraumatic, Normocephaly, Mucus Membranes Moist Cardiac: Other (irregularly irregular) Lungs: Other (Bibasilar rales) Neuro: Alert and responsive Abdomen: Soft Skin: No rashes noted on visualized skin Musculoskeletal: No Chest Wall Tenderness Extremities: No Edema, Normal Pulses Results 02/11/18 09:14 02/11/18 11:44 Lab Results 02/11/18 02/11/18 02/11/18 09:14 09:14 11:44 WBC 14.5 H D Hgb 16.2 Hct 47.7 Plt Count 335 INR 1.1 APTT 30.3 Sodium 135 L Potassium 4.0 Chloride 101 Carbon Dioxide 22 L BUN 29 H Creatinine 1.39 H Glucose 139 H Calcium 9.5 02/12/18 00:21 WBC Hgb Hct Plt Count INR APTT 29.3 Sodium Potassium Chloride Carbon Dioxide BUN Creatinine Glucose Calcium Active Medications Acetaminophen (Tylenol) 650 mg PO Q6H PRN PRN Reason: Mild Pain/Fever Stop: 08/12/18 03:13 Hydrocodone Bitart/Acetaminophen ([place] 5-325 Mg) 1 tab PO Q6H PRN PRN Reason: Moderate Pain Stop: 08/12/18 03:13 Last Admin: 02/11/18 04:00 Dose: 1 tab Albuterol/Ipratropium (Duoneb) 3 ml IH [id number] PRN PRN Reason: Shortness Of Breath/Wheezing Stop: 08/12/18 03:18 Albuterol/Ipratropium (Duoneb) 3 ml IH [id number] MIRIAM Stop: 08/12/18 04:01 Last Admin: 02/12/18 03:29 Dose: 3 ml Aspirin (Aspirin Ec) 81 mg PO DAILY MIRIAM Stop: 08/12/18 03:31 Last Admin: 02/11/18 09:42 Dose: 81 mg Furosemide (Lasix) 20 mg IVP DAILY MIRIAM Stop: 08/12/18 09:01 Last Admin: 02/11/18 09:42 Dose: 20 mg Heparin Sodium (Porcine) (Heparin) 4,000 unit IVP Q6HR PRN PRN Reason: SEE COMMENTS Stop: 08/13/18 08:44 Heparin Sodium (Porcine) (Heparin) 2,000 unit IVP Q6H PRN PRN Reason: SEE COMMENTS Stop: 08/13/18 08:44 Azithromycin 500 mg/ Dextrose 250 mls @ 252 mls/hr IVPB Q24H MIRIAM Stop: 08/12/18 20:01 Last Infusion: 02/11/18 21:18 Dose: Infused Ceftriaxone Sodium 1,000 mg/ (Sterile Water) 10 mls @ 300 mls/hr IVPB Q24H MIRIAM Stop: 08/12/18 18:01 Last Admin: 02/11/18 18:04 Dose: 300 mls/hr Heparin Sodium/Dextrose (Heparin 25,000 Unit/500 Ml D5w) 25,000 unit in 500 mls @ 19.84 mls/hr IVC .Q24H MIRIAM; 9.9 UNIT/KG/HR PRN Reason: Protocol Stop: 08/13/18 08:46 Last Titration: 02/12/18 02:19 Dose: 11.97 unit/kg/hr, 24 mls/hr Labetalol HCl 200 mg/ Dextrose 290 mls @ 435 mls/hr IVC CONT MIRIAM; 5 MG/MIN PRN Reason: Protocol Stop: 08/13/18 17:31 Last Titration: 02/11/18 19:45 Dose: Infused Metoprolol Tartrate (Lopressor) 5 mg IVP Q6HR PRN PRN Reason: Hypertension, SBP >160 Stop: 08/12/18 12:39 Last Admin: 02/11/18 13:50 Dose: 5 mg Metoprolol Tartrate (Lopressor) 100 mg PO BID MIRIAM Stop: 08/13/18 13:50 Last Admin: 02/11/18 20:08 Dose: 100 mg Naloxone HCl (Narcan) 0.4 mg IVP Q2MIN PRN PRN Reason: SEE COMMENTS Stop: 08/12/18 03:13 Ondansetron HCl (Zofran) 4 mg IVP Q4HR PRN; Protocol PRN Reason: Nausea Stop: 02/14/18 11:35 Last Admin: 02/11/18 21:12 Dose: 4 mg Prednisone (Prednisone) 40 mg PO DAILY MIRIAM Stop: 08/12/18 09:01 Last Admin: 02/11/18 09:41 Dose: 40 mg Simvastatin (Zocor) 20 mg PO HS MIRIAM PRN Reason: Protocol Stop: 08/13/18 21:01 Last Admin: 02/11/18 20:08 Dose: 20 mg - Imaging and Cardiology Echo: report reviewed Cardiac cath: report reviewed Other Results: 12 hour tele: avg HR=77 afib. - EKG Interpretation EKG results cardiology: personally reviewed Consult Discharge Plan - Plan [facility]errals: [facility] [Primary Care Provider] -
[2018-02-12] MEDS: predniSONE 20 MG TABLET PO SCH (08:37)
[2018-02-12] MEDS: Aspirin Enteric Coated 81 MG Tablet PO SCH (08:37)
[2018-02-12] MEDS: Furosemide 20 MG/2 ML VIAL IVP SCH (08:37)
[2018-02-12] MEDS: *HR* Heparin 5,000 UNIT/ML VIAL IVP PRN (10:21)
[2018-02-12 10:23] LABS: Basophils % 0.4 %; Hematocrit 45.4 % (37.5-50.1); Hemoglobin 15.4 g/dL (12.9-16.9); Immature Granulocytes % 0.3 % (0-4); Lymphocytes % 21.2 %; Mean Corpuscular HGB Conc 33.9 g/dL (31.6-35.5); Mean Corpuscular Volume 91.3 fL (83.0-100.0); Mean Platelet Volume 10.9 fL (9.4-12.4); Monocytes # 0.9 K/mcL (0.0-1.3); Monocytes % 9.6 %; Neutrophils # 6.5 K/mcL (1.6-8.9); Platelet Count 306 K/mcL (140-400); Red Blood Count 4.97 M/mcL (4.19-5.50); Red Cell Distribution Width 14.1 % (11.5-14.5); Segmented Neutrophils % 68.5 %
[2018-02-12] MEDS ORDERED: Aspirin 81 MG TAB.CHEW PO ONE (10:30)
[2018-02-12 10:40] LABS: Calcium 9.1 mg/dL (8.6-10.3); Potassium 4.1 mEq/L (3.5-5.1)
[2018-02-12] MEDS: Metoprolol XL (24 HR) Succ 50 MG TAB.ER.24H PO SCH (11:32)
[2018-02-12] MEDS: cefTRIAXone 1,000 MG in Water for inj. (sterile) 20 ML 10 ML IVPB SCH (17:43)
--- NOTE | 2018-02-12 18:43 | Internal Med Progress Note ---
Date of Encounter: 02/12/18 Time of Encounter: 11:00 - Assessment and plan (1) Community acquired pneumonia Current Visit: Yes Status: Acute Assessment and plan: Patient's leukocytosis has resolved and afebrile Will continue azithromycin and Rocephin. Qualifiers: Laterality: left Lung location: lower lobe of lung Qualified Code(s): J18.1 - Lobar pneumonia, unspecified organism (2) Acute exacerbation of chronic obstructive airways disease Current Visit: Yes Status: Acute Assessment and plan: Secondary to community acquired pneumonia Continue dual nebs and prednisone (3) CHF (congestive heart failure) Current Visit: Yes Status: Suspected Assessment and plan: Patient with systolic heart failure Cardiology consulted and left heart catheterization done which showed high percent blockage of RCA but patient with good collateral blood flow therefore no intervention needed. Transesophageal echocardiogram show LVEF of 30% with global left ventricular systolic dysfunction Recommendations for IV diuresis Qualifiers: Heart failure type: systolic Heart failure chronicity: acute Qualified Code(s): I50.21 - Acute systolic (congestive) heart failure (4) A-fib Current Visit: Yes Status: Acute Assessment and plan: Patient with a chads Vascor of 4 with recommendations for oral anticoagulation; Eliquis 5 mg twice daily Continue rate control and heparin drip until evaluated by vascular surgery for aortic abdominal aneurysm Qualifiers: Atrial fibrillation type: unspecified Qualified Code(s): I48.91 - Unspecified atrial fibrillation (5) Abdominal aortic aneurysm (AAA) without rupture Current Visit: Yes Status: Acute Assessment and plan: Patient found to have aN aortic abdominal aneurysm measuring 5.2 cm. Vascular surgery consult and appreciate recommendations (6) Kidney stone on left side Current Visit: Yes Status: Acute Assessment and plan: Urology consult with recommendations for outpatient follow-up (7) UTI (urinary tract infection) Current Visit: Yes Status: Acute Assessment and plan: Urine cultures negative Qualifiers: Urinary tract infection type: acute cystitis Hematuria presence: without hematuria Qualified Code(s): N30.00 - Acute cystitis without hematuria (8) DVT prophylaxis Current Visit: Yes Status: Acute Assessment and plan: On heparin drip - Time Spent With Patient Total time spent is greater than 50% in coordination of care (as documented) at patient's floor/unit and/or counseling patient: - Subjective Interval history: Patient with no issues or complaints Patient's blood pressure has been better controlled Patient to be evaluated on Wednesday by vascular surgery for aortic abdominal aneurysm - Constitutional Vitals: Temp Pulse Resp BP Pulse Ox 98.4 F 81 18 144/100 92 02/12/18 16:12 02/12/18 16:12 02/12/18 16:12 02/12/18 16:12 02/12/18 16:12 General appearance: Present: A&O X 3, no acute distress, answers questions appropriately - Respiratory Respiratory exam: Present: CTAB. Absent: accessory muscle use, rales, rhonchi, wheezes - Cardiovascular Cardiovascular exam: Present: RRR, +S1, +S2. Absent: diastolic murmur, gallop, rubs, systolic murmur Internal Medicine: Result - Labs CBC & Chem 7: 02/12/18 09:22 02/12/18 09:22 Labs: Short CBC 02/12/18 Range/Units 09:22 WBC 9.5 (4.3-11.1) K/mcL Hgb 15.4 (12.9-16.9) g/dL Hct 45.4 (37.5-50.1) % Plt Count 306 (140-400) K/mcL Neutrophils # 6.5 (1.6-8.9) K/mcL BMP 02/12/18 09:22 Sodium 135 L Potassium 4.1 Chloride 99 Carbon Dioxide 27 BUN 40 H Creatinine 1.70 H Glucose 120 H Calcium 9.1 - ABG Interpretation ABG results: PT/INR, D-dimer PT 11.9 Seconds (9.4-12.1) 02/11/18 09:14 Consult Discharge Plan - Plan [facility]errals: [facility] [Primary Care Provider] -
[2018-02-12] MEDS: Azithromycin 500 MG in D5% in Water 250 ML IVPB SCH (20:28)
[2018-02-12] MEDS ORDERED: Apixaban 5 MG TABLET PO SCH (21:00)
[2018-02-12] MEDS: Heparin 25,000 UNIT/500 ML D5W 25,000 UNIT/500 ML BAG IVC SCH (21:42)
[2018-02-12] MEDS: *HR* HYDROcodone/Acet 5/325 mg TABLET PO PRN (21:51)
[2018-02-13 01:15] LABS: Basophils % 0.2 %; Hematocrit 44.8 % (37.5-50.1); Immature Granulocytes % 0.3 % (0-4); Lymphocytes # 1.9 K/mcL (0.6-4.6); Lymphocytes % 19.9 %; Mean Corpuscular HGB Conc 33.5 g/dL (31.6-35.5); Mean Corpuscular Hemoglobin 30.5 pg (28.0-33.3); Mean Corpuscular Volume 91.1 fL (83.0-100.0); Mean Platelet Volume 10.5 fL (9.4-12.4); Monocytes # 0.9 K/mcL (0.0-1.3); Monocytes % 9.4 %; Neutrophils # 6.6 K/mcL (1.6-8.9); Platelet Count 278 K/mcL (140-400); Red Blood Count 4.92 M/mcL (4.19-5.50); Red Cell Distribution Width 13.8 % (11.5-14.5); Segmented Neutrophils % 70.2 %
[2018-02-13] MEDS: *HR* Heparin 5,000 UNIT/ML VIAL IVP PRN (02:00)
[2018-02-13] MEDS: Ipratropium/Albuterol Neb 3 ML IH SCH ×4 (04:03→22:20)
[2018-02-13] MEDS: *HR* Metoprolol 5 MG/5 ML VIAL IVP PRN ×2 (04:19→17:47)
[2018-02-13] MEDS: Furosemide 20 MG/2 ML VIAL IVP SCH (07:59)
[2018-02-13] MEDS: predniSONE 20 MG TABLET PO SCH (07:59)
[2018-02-13] MEDS: Metoprolol XL (24 HR) Succ 50 MG TAB.ER.24H PO SCH (07:59)
[2018-02-13] MEDS: Aspirin Enteric Coated 81 MG Tablet PO SCH (07:59)
--- NOTE | 2018-02-13 08:07 | Cardiology Progress Note ---
Date of Encounter: 02/13/18 Time of Encounter: 07:50 Assessment and Plan (1) NSTEMI (non-ST elevated myocardial infarction) Current Visit: Yes Status: Acute Troponin 3.51. [facility] 02/11/18: occluded pRCA with collateral from LCA to RCA; otherwise mild, non- obstructive CAD. Medical mgmt recommended. Consider high-risk PCI with symptoms. TTE 02/10/18: LVEF 30%, severe global LV systolic dysfunction, mild cLVH, mild- moderate MR. Denies chest pain or discomfort. No issues with cath site. Cardiac rehab consult. Continue heparin gtt for 24 hours. Continue asa, BB, statin. Add imdur today to improve BP control. Recommend prn NTG at discharge. No further inpatient recommendations from Cardiology standpoint, will sign-off. (2) CHF (congestive heart failure) Current Visit: Yes Status: Suspected LVEF 30% with severe global systolic dysfunction, mild cLVH, mild-moderate MR. Chronicity unclear. Likely non-ischemic (?tachycardia); CAD out of proportion to cardiomyopathy. Will change betablocker to Toprol XL d/t CHF. Overall, rate is controlled. Consider addition of ACEi if renal function/BP will allow. No significant volume overload on exam. Cumulative I&O: +554 mL. Cautious diuresis, convert to po lasix upon discharge Strict I&O's, daily weight, Na/fluid restriction diet. Qualifiers: Heart failure type: systolic Heart failure chronicity: acute Qualified Code(s): I50.21 - Acute systolic (congestive) heart failure (3) A-fib Current Visit: Yes Status: Acute Newly diagnosed atrial fibrillation, patient reports palpitations for "years." TSH normal. LVEF 30%, mild-moderate MR. Rate is adequately controlled, continue BB. Avg HR=77 overnight. CHA2Ds Vasc= (4, age/CHF/CAD/HTN); recommend full AC when felt safe to start from Urology standpoint (hydronephrosis) and Vascular surgery (AAA). Recommend starting Eliquis 5 mg BID when able, patient is agreeable. Qualifiers: Atrial fibrillation type: unspecified Qualified Code(s): I48.91 - Unspecified atrial fibrillation (4) Community acquired pneumonia Current Visit: Yes Status: Acute Management per primary team Qualifiers: Laterality: left Lung location: lower lobe of lung Qualified Code(s): J18.1 - Lobar pneumonia, unspecified organism (5) Abdominal aortic aneurysm (AAA) without rupture Current Visit: Yes Status: Acute Incidental finding, 5.2 cm. Management per vascular team Discussion w patient/family: The assessment and plan as outlined above was discussed with the patient and/or family members who expressed understanding and agreement. All questions were answered. Thank you for involving us in the care of your patient. Please call with any questions. The patient was discussed and reviewed with Dr. Hooper who agrees with plan as stated above. Subjective Principal diagnosis: NSTEMI, PAF, CHF, PNA, AAA Interval history: Seen and examined. No complaints overnight. No chest pain reported. No issues with cath site. Reports breathing has somewhat improved this morning. Reports flank pain this morning. Objective Vital Signs, Last 4 Hours Temp Pulse Resp BP Pulse Ox 02/13/18 07:08 97.6 F 94 18 152/118 92 General: Conversant, No Apparent Distress HEENT: Atraumatic, Normocephaly, Mucus Membranes Moist Cardiac: Other (irregularly irregular) Lungs: Other (Expiratory wheezes) Neuro: Alert and responsive Abdomen: Soft Skin: No rashes noted on visualized skin Musculoskeletal: No Chest Wall Tenderness Extremities: Other (mild BLE edema) Results 02/13/18 00:55 02/13/18 00:55 Lab Results 02/12/18 02/12/18 02/12/18 08:05 09:22 09:22 WBC 9.5 Hgb 15.4 Hct 45.4 Plt Count 306 APTT 45.3 H D Sodium 135 L Potassium 4.1 Chloride 99 Carbon Dioxide 27 BUN 40 H Creatinine 1.70 H Glucose 120 H Calcium 9.1 02/12/18 02/13/18 02/13/18 19:05 00:55 00:55 WBC 9.5 Hgb 15.0 Hct 44.8 Plt Count 278 APTT 58.3 H Sodium 137 Potassium 4.0 Chloride 100 Carbon Dioxide 29 BUN 40 H Creatinine 1.50 H Glucose 105 Calcium 9.0 02/13/18 00:55 WBC Hgb Hct Plt Count APTT 49.1 H Sodium Potassium Chloride Carbon Dioxide BUN Creatinine Glucose Calcium Active Medications Acetaminophen (Tylenol) 650 mg PO Q6H PRN PRN Reason: Mild Pain/Fever Stop: 08/12/18 03:13 Hydrocodone Bitart/Acetaminophen ([place] 5-325 Mg) 1 tab PO Q6H PRN PRN Reason: Moderate Pain Stop: 08/12/18 03:13 Last Admin: 02/12/18 21:51 Dose: 1 tab Albuterol/Ipratropium (Duoneb) 3 ml IH [id number] PRN PRN Reason: Shortness Of Breath/Wheezing Stop: 08/12/18 03:18 Albuterol/Ipratropium (Duoneb) 3 ml IH [id number] MIRIAM Stop: 08/12/18 04:01 Last Admin: 02/13/18 04:03 Dose: 3 ml Aspirin (Aspirin Ec) 81 mg PO DAILY MIRIAM Stop: 08/12/18 03:31 Last Admin: 02/13/18 07:59 Dose: 81 mg Atorvastatin Calcium (Lipitor) 40 mg PO HS MIRIAM Stop: 08/14/18 21:01 Last Admin: 02/12/18 20:29 Dose: 40 mg Furosemide (Lasix) 20 mg IVP DAILY MIRIAM Stop: 08/12/18 09:01 Last Admin: 02/13/18 07:59 Dose: 20 mg Heparin Sodium (Porcine) (Heparin) 4,000 unit IVP Q6HR PRN PRN Reason: SEE COMMENTS Stop: 08/13/18 20:00 Heparin Sodium (Porcine) (Heparin) 2,000 unit IVP Q6H PRN PRN Reason: SEE COMMENTS Stop: 08/13/18 20:00 Last Admin: 02/13/18 02:00 Dose: 2,000 unit Azithromycin 500 mg/ Dextrose 250 mls @ 252 mls/hr IVPB Q24H MIRIAM Stop: 08/12/18 20:01 Last Infusion: 02/12/18 21:40 Dose: Infused Ceftriaxone Sodium 1,000 mg/ (Sterile Water) 10 mls @ 300 mls/hr IVPB Q24H MIRIAM Stop: 08/12/18 18:01 Last Admin: 02/12/18 17:43 Dose: 300 mls/hr Heparin Sodium/Dextrose (Heparin 25,000 Unit/500 Ml D5w) 25,000 unit in 500 mls @ 19.84 mls/hr IVC .Q24H MIRIAM; 9.9 UNIT/KG/HR PRN Reason: Protocol Stop: 08/13/18 20:00 Last Titration: 02/13/18 02:06 Dose: 15.96 unit/kg/hr, 32 mls/hr Isosorbide Mononitrate (Imdur) 30 mg PO DAILY [facility] Stop: 08/15/18 09:01 Metoprolol Succinate (Toprol Xl) 100 mg PO DAILY [facility] Stop: 08/14/18 09:01 Last Admin: 02/13/18 07:59 Dose: 100 mg Metoprolol Tartrate (Lopressor) 5 mg IVP Q6HR PRN PRN Reason: Hypertension, SBP >160 Stop: 08/12/18 12:39 Last Admin: 02/13/18 04:19 Dose: 5 mg Naloxone HCl (Narcan) 0.4 mg IVP Q2MIN PRN PRN Reason: SEE COMMENTS Stop: 08/12/18 03:13 Ondansetron HCl (Zofran) 4 mg IVP Q4HR PRN; Protocol PRN Reason: Nausea Stop: 02/14/18 11:35 Last Admin: 02/11/18 21:12 Dose: 4 mg Prednisone (Prednisone) 40 mg PO DAILY [facility] Stop: 08/12/18 09:01 Last Admin: 02/13/18 07:59 Dose: 40 mg - Imaging and Cardiology Echo: report reviewed Cardiac cath: report reviewed Other Results: 12 hour tele: avg HR=86 afib. - EKG Interpretation EKG results cardiology: personally reviewed Consult Discharge Plan - Plan Referrals: [facility] [Primary Care Provider] -
[2018-02-13] MEDS: Isosorbide MONOnitrate (24 HR) 30 MG TAB.ER.24H PO SCH (11:30)
[2018-02-13] MEDS: Heparin 25,000 UNIT/500 ML D5W 25,000 UNIT/500 ML BAG IVC SCH (15:27)
[2018-02-13] MEDS ORDERED: *HR* Metoprolol 5 MG/5 ML VIAL IVP ONE (15:44)
[2018-02-13] MEDS: cefTRIAXone 1,000 MG in Water for inj. (sterile) 20 ML 10 ML IVPB SCH (17:37)
--- NOTE | 2018-02-13 18:01 | Internal Med Progress Note ---
Date of Encounter: 02/13/18 Time of Encounter: 11:00 - Assessment and plan (1) Abdominal aortic aneurysm (AAA) without rupture Current Visit: Yes Status: Acute Assessment and plan: Patient found to have an aortic abdominal aneurysm measuring 5.2 cm. Working on blood pressure control Vascular surgery consult and appreciate recommendations (2) HTN (hypertension) Current Visit: Yes Status: Acute Assessment and plan: Patient with uncontrolled blood pressures Imdur has been added today and dose of metoprolol succinate increased Continue IV Lopressor as needed Qualifiers: Hypertension type: essential hypertension Qualified Code(s): I10 - Essential (primary) hypertension (3) A-fib Current Visit: Yes Status: Acute Assessment and plan: Patient with a chads Vasc of 4 with recommendations for oral anticoagulation; Eliquis 5 mg twice daily Continue rate control and heparin drip until evaluated by vascular surgery for aortic abdominal aneurysm Qualifiers: Atrial fibrillation type: unspecified Qualified Code(s): I48.91 - Unspecified atrial fibrillation (4) CHF (congestive heart failure) Current Visit: Yes Status: Suspected Assessment and plan: Patient with systolic heart failure Cardiology consulted and left heart catheterization done which showed high percent blockage of RCA but patient with good collateral blood flow therefore no intervention needed. Transesophageal echocardiogram show LVEF of 30% with global left ventricular systolic dysfunction Continue IV diuresis Qualifiers: Heart failure type: systolic Heart failure chronicity: acute Qualified Code(s): I50.21 - Acute systolic (congestive) heart failure (5) Community acquired pneumonia Current Visit: Yes Status: Acute Assessment and plan: Patient's leukocytosis has resolved and afebrile Will continue azithromycin and Rocephin. Qualifiers: Laterality: left Lung location: lower lobe of lung Qualified Code(s): J18.1 - Lobar pneumonia, unspecified organism (6) Acute exacerbation of chronic obstructive airways disease Current Visit: Yes Status: Acute Assessment and plan: Secondary to community acquired pneumonia Continue dual nebs and prednisone (7) Kidney stone on left side Current Visit: Yes Status: Acute Assessment and plan: Urology consult with recommendations for outpatient follow-up (8) UTI (urinary tract infection) Current Visit: Yes Status: Acute Assessment and plan: Urine cultures negative Qualifiers: Urinary tract infection type: acute cystitis Hematuria presence: without hematuria Qualified Code(s): N30.00 - Acute cystitis without hematuria (9) DVT prophylaxis Current Visit: Yes Status: Acute Assessment and plan: On heparin drip - Time Spent With Patient Total time spent is greater than 50% in coordination of care (as documented) at patient's floor/unit and/or counseling patient: - Subjective Interval history: Patient with no issues or complaints Patient's blood pressures still elevated Patient to be evaluated on Wednesday by vascular surgery for aortic abdominal aneurysm - Constitutional Vitals: Temp Pulse Resp BP Pulse Ox 98.4 F 77 16 153/88 93 02/13/18 15:33 02/13/18 16:47 02/13/18 16:07 02/13/18 16:47 02/13/18 16:07 General appearance: Present: A&O X 3, no acute distress, answers questions appropriately - Respiratory Respiratory exam: Present: CTAB. Absent: accessory muscle use, rales, rhonchi, wheezes - Cardiovascular Cardiovascular exam: Present: RRR, +S1, +S2. Absent: diastolic murmur, gallop, rubs, systolic murmur Internal Medicine: Result - Labs CBC & Chem 7: 02/13/18 00:55 02/13/18 00:55 Labs: Short CBC 02/13/18 Range/Units 00:55 WBC 9.5 (4.3-11.1) K/mcL Hgb 15.0 (12.9-16.9) g/dL Hct 44.8 (37.5-50.1) % Plt Count 278 (140-400) K/mcL Neutrophils # 6.6 (1.6-8.9) K/mcL BMP 02/13/18 00:55 Sodium 137 Potassium 4.0 Chloride 100 Carbon Dioxide 29 BUN 40 H Creatinine 1.50 H Glucose 105 Calcium 9.0 - ABG Interpretation ABG results: PT/INR, D-dimer PT 11.9 Seconds (9.4-12.1) 02/11/18 09:14 Consult Discharge Plan - Plan [facility]errals: [facility] Care Provider[facility] -
[2018-02-13] MEDS: Azithromycin 500 MG in D5% in Water 250 ML IVPB SCH (20:30)
[2018-02-14] MEDS: *HR* Metoprolol 5 MG/5 ML VIAL IVP PRN (03:40)
[2018-02-14] MEDS: Ipratropium/Albuterol Neb 3 ML IH SCH ×4 (03:47→22:01)
[2018-02-14 05:20] LABS: Basophils % 0.2 %; Eosinophils % 0.1 %; Hematocrit 43.5 % (37.5-50.1); Hemoglobin 14.5 g/dL (12.9-16.9); Immature Granulocytes % 0.3 % (0-4); Lymphocytes # 2.7 K/mcL (0.6-4.6); Lymphocytes % 28.7 %; Mean Corpuscular HGB Conc 33.3 g/dL (31.6-35.5); Mean Corpuscular Hemoglobin 30.4 pg (28.0-33.3); Mean Corpuscular Volume 91.2 fL (83.0-100.0); Mean Platelet Volume 10.8 fL (9.4-12.4); Monocytes # 0.8 K/mcL (0.0-1.3); Monocytes % 8.5 %; Neutrophils # 5.8 K/mcL (1.6-8.9); Platelet Count 263 K/mcL (140-400); Red Blood Count 4.77 M/mcL (4.19-5.50); Red Cell Distribution Width 13.6 % (11.5-14.5); Segmented Neutrophils % 62.2 %
[2018-02-14 05:44] LABS: BUN/Creatinine Ratio 25 (6-26); Blood Urea Nitrogen 32 mg/dL (8-23); Calcium 9.1 mg/dL (8.6-10.3); Carbon Dioxide 28 mEq/L (23-29); Chloride 104 mEq/L (98-107); Glucose 107 mg/dL (70-105); Osmolality,Calculated 295 (280-300); Potassium 3.8 mEq/L (3.5-5.1); Sodium 139 mEq/L (136-145); eGFR For African Americans > 60 (> 60); eGFR For Non-African Americans 56 (> 60)
[2018-02-14] MEDS: Isosorbide MONOnitrate (24 HR) 30 MG TAB.ER.24H PO SCH (08:16)
[2018-02-14] MEDS: Furosemide 20 MG/2 ML VIAL IVP SCH (08:16)
[2018-02-14] MEDS: Aspirin Enteric Coated 81 MG Tablet PO SCH (08:16)
[2018-02-14] MEDS: predniSONE 20 MG TABLET PO SCH (08:17)
[2018-02-14] MEDS: Metoprolol XL (24 HR) Succ 50 MG TAB.ER.24H PO SCH (08:17)
[2018-02-14] MEDS ORDERED: Isovue-370 500 ML INFUS..BTL IV ONE (08:42)
[2018-02-14] MEDS: Heparin 25,000 UNIT/500 ML D5W 25,000 UNIT/500 ML BAG IVC SCH (09:59)
[2018-02-14] MEDS: Labetalol 200 MG in D5% in Water 250 ML IVC SCH ×2 (10:14→19:46)
[2018-02-14] MEDS: *HR* Acetylcysteine 20% 600 MG/3 ML ORAL SYRINGE PO SCH ×2 (10:15→20:32)
--- NOTE | 2018-02-14 14:49 | Vascular/Endovasc Consult Note ---
Date of Encounter: 02/14/18 Time of Encounter: 14:00 Assessment and Plan (1) Abdominal aortic aneurysm (AAA) without rupture Current Visit: Yes Status: Acute The pathophysiology and natural history of abdominal aortic aneurysms was discussed with the patient and all questions were answered. He has undergone a CT angiogram. The patient has a 5.2cm infrarenal abdominal aortic aneurysm. His aneurysm appears to be appropriate for endograft placement. The images will be reviewed for graft sizing. The patient will then be scheduled for repair. (2) Community acquired pneumonia Current Visit: Yes Status: Acute Qualifiers: Laterality: left Lung location: lower lobe of lung Qualified Code(s): J18.1 - Lobar pneumonia, unspecified organism (3) Essential hypertension Current Visit: Yes Status: Chronic (4) Paroxysmal atrial fibrillation Current Visit: Yes Status: Acute Currently anticoagulated with heparin. (5) CAD (coronary artery disease) Current Visit: Yes Status: Chronic Left heart cath with severe one vessel disease. Patient denies chest pain or shortness of breath. Qualifiers: Coronary Disease-Associated Artery/Lesion type: [place] artery [place] vs. transplanted heart: [place] heart Associated angina: without angina Qualified Code(s): I25.10 - Atherosclerotic heart disease of [place] coronary artery without angina pectoris - History of Present Illness Consult date: 02/17/18 Requesting physician: Tank Campbell Consult reason: Abdominal aortic aneurysm Chief complaint: Abdominal aortic aneurysm History of present illness: Mr. Jiménez is a 67 year old male admitted to [facility] with kidney stone, atrial fibrillation, COPD exacerbation and left lower lobe pneumonia. He was noted to have a 5.2cm abdominal aortic aneurysm. He reports that since admission he is feeling much better. He reports that he was unaware that he had an aneurysm. He reports that he is still having difficulty with his blood pressure. He denies any acute abdominal, flank or back pain. He denies fevers or chills. He denies any chest pain or shortness of breath. Past Med Surg Social Fam HX - Past Medical History Medical history: COPD, hypertension Psychiatric history: no psych history - Past Surgical History Surgical History: appendectomy - Social History Smoking Status: Current every day smoker Smokeless Tobacco Status: No Alcohol use: none Drug use: none - Family History Mother History Unknown: Yes Father Hx Family Cardiac Disorders: Yes (hypertension) Medications and Allergies Naproxen Sodium [Aleve] 220 mg PO BID PRN 02/10/18 [History] 3 Allergy/AdvReac Type Severity Reaction Status Date / Time No Known Allergies Allergy Verified 02/10/18 07:57 All Systems Review: The remainder of the systems were reviewed and are negative - Constitutional Constitutional: no chills, no fever(s) - Cardiovascular Cardiovascular: no chest pain at rest, no chest pain with exertion, no dyspnea at rest, no dyspnea on exertion - Gastrointestinal Gastrointestinal: no abdominal pain Exam Vital Signs, Last 4 Hours Temp Pulse Resp BP Pulse Ox 02/14/18 14:24 74 20 94 02/14/18 11:47 85 02/14/18 11:44 76 18 145/100 94 02/14/18 11:13 98.3 F 79 20 155/89 93 General: Present: Conversant, No Apparent Distress HEENT: Present: Trachea midline, Pupils equal Neck: Absent: JVD, Lymphadenopathy, Left Carotid bruit, Right Carotid bruit Cardiac: Present: Normal S1 and S2, No Murmur Lungs: Present: Normal Breath Sounds, No Wheeze, Rales, Rhonchi Neuro: Present: Alert and responsive, No focal deficits noted, Motor nerves grossly intact, Sensory nerves grossly intact Abdomen: Present: Soft, Non-tender, Other (abdominal aortic aneurysm). Absent: Masses Vascular: Present: Normal capillary refill, Capillary refill delayed, Pulse, normal. Absent: Cyanosis, Edema Skin: Present: No rashes noted on visualized skin Musculoskeletal: Present: No Chest Wall Tenderness Consult Discharge Plan - Plan Referrals: Ayo Hooper DO [Partnered Physician] - (OFFICE WILL CALL PATIENT AT HOME WITH FOLLOW UP APPOINTMENT) Mario Burden MD [Partnered Physician] - 03/29/18 1:15 pm [facility],PCP [Primary Care Provider] - 02/24/18 1:30 pm (YOU WILL BE SEEN IN THE DISCHARGE CLINIC FOR THIS APPOINTMENT. IT IS LOCATED IN [place] [address].)
[2018-02-14] MEDS: cefTRIAXone 1,000 MG in Water for inj. (sterile) 20 ML 10 ML IVPB SCH (18:22)
[2018-02-14] MEDS ORDERED: Metoprolol XL (24 HR) Succ 50 MG TAB.ER.24H PO ONE (18:36)
--- NOTE | 2018-02-14 19:58 | Internal Med Progress Note ---
Date of Encounter: 02/14/18 Time of Encounter: 11:00 - Assessment and plan (1) Abdominal aortic aneurysm (AAA) without rupture Current Visit: Yes Status: Acute Assessment and plan: Patient found to have an aortic abdominal aneurysm measuring 5.2 cm. Working on blood pressure control Vascular surgery consult and appreciate recommendations (2) HTN (hypertension) Current Visit: Yes Status: Acute Assessment and plan: Patient with uncontrolled blood pressures Imdur has been added today and dose of metoprolol succinate increased Patient was placed on labetalol drip for better control Qualifiers: Hypertension type: essential hypertension Qualified Code(s): I10 - Essential (primary) hypertension (3) A-fib Current Visit: Yes Status: Acute Assessment and plan: Patient with a chads Vasc of 4 with recommendations for oral anticoagulation; Eliquis 5 mg twice daily Continue rate control and heparin drip until evaluated by vascular surgery for aortic abdominal aneurysm Qualifiers: Atrial fibrillation type: unspecified Qualified Code(s): I48.91 - Unspecified atrial fibrillation (4) CHF (congestive heart failure) Current Visit: Yes Status: Suspected Assessment and plan: Patient with systolic heart failure Cardiology consulted and left heart catheterization done which showed high percent blockage of RCA but patient with good collateral blood flow therefore no intervention needed. Transesophageal echocardiogram show LVEF of 30% with global left ventricular systolic dysfunction Continue IV diuresis Qualifiers: Heart failure type: systolic Heart failure chronicity: acute Qualified Code(s): I50.21 - Acute systolic (congestive) heart failure (5) Community acquired pneumonia Current Visit: Yes Status: Acute Assessment and plan: Patient's leukocytosis has resolved and afebrile Will continue azithromycin and Rocephin. Qualifiers: Laterality: left Lung location: lower lobe of lung Qualified Code(s): J18.1 - Lobar pneumonia, unspecified organism (6) Acute exacerbation of chronic obstructive airways disease Current Visit: Yes Status: Acute Assessment and plan: Secondary to community acquired pneumonia Continue dual nebs and prednisone (7) Kidney stone on left side Current Visit: Yes Status: Acute Assessment and plan: Urology consult with recommendations for outpatient follow-up (8) UTI (urinary tract infection) Current Visit: Yes Status: Acute Assessment and plan: Urine cultures negative Qualifiers: Urinary tract infection type: acute cystitis Hematuria presence: without hematuria Qualified Code(s): N30.00 - Acute cystitis without hematuria (9) DVT prophylaxis Current Visit: Yes Status: Acute Assessment and plan: On heparin drip - Time Spent With Patient Total time spent is greater than 50% in coordination of care (as documented) at patient's floor/unit and/or counseling patient: - Subjective Interval history: Patient with no issues or complaints Patient's blood pressures still elevated Patient to be evaluated today by vascular surgery for aortic abdominal aneurysm - Constitutional Vitals: Temp Pulse Resp BP Pulse Ox 98.3 F 75 19 146/106 92 02/14/18 18:33 02/14/18 18:33 02/14/18 18:33 02/14/18 18:33 02/14/18 18:33 General appearance: Present: A&O X 3, no acute distress, answers questions appropriately - Respiratory Respiratory exam: Present: CTAB. Absent: accessory muscle use, rales, rhonchi, wheezes - Cardiovascular Cardiovascular exam: Present: RRR, +S1, +S2. Absent: diastolic murmur, gallop, rubs, systolic murmur Internal Medicine: Result - Labs CBC & Chem 7: 02/14/18 05:03 02/14/18 05:03 Labs: Short CBC 02/14/18 Range/Units 05:03 WBC 9.3 (4.3-11.1) K/mcL Hgb 14.5 (12.9-16.9) g/dL Hct 43.5 (37.5-50.1) % Plt Count 263 (140-400) K/mcL Neutrophils # 5.8 (1.6-8.9) K/mcL BMP 02/14/18 05:03 Sodium 139 Potassium 3.8 Chloride 104 Carbon Dioxide 28 BUN 32 H Creatinine 1.28 Glucose 107 H Calcium 9.1 - ABG Interpretation ABG results: PT/INR, D-dimer PT 11.9 Seconds (9.4-12.1) 02/11/18 09:14 - Impressions Impressions Abdomen/Pelvis CTA 02/14/18 08:42 IMPRESSION: 1. 5.2 cm x 5.1 cm fusiform aneurysm of the infrarenal abdominal aorta, beginning approximately 2.8 cm beyond the right renal artery origin and extending to near the bifurcation. Of note, there is a focal fenestrated dissection flap approximately point Recommend follow-up imaging in 6 months as below. Vascular surgery consultation has been obtained. 2. Mild to moderate stenosis of the distal left renal artery prior to its bifurcation. There is a 0.6 cm x 0.3 cm outpouching arising from the inferior portion the left renal artery just proximal to the bifurcation, and there is adjacent soft tissue density. The findings could be related to a pseudoaneurysm in the setting of vasculitis or a penetrating ulcer with adjacent inflammation. 3. Minimal left renal atrophy. There is decreased left renal enhancement consistent with underlying parenchymal dysfunction. This could potentially be related to the above left renal artery stenosis, but also could be related to intermittent obstruction from a currently nonobstructing staghorn calculus in the left renal pelvis. 4. Additional incidental findings as above. RECOMMENDATIONS: Managing Abdominal Aortic Aneurysms 4.5-5.4 cm: Every 6 months. Recommend vascular consultation. Reference: J Vasc Surg. 2009 Aug;50(4 Suppl):S2-49 D/ / Valentín Bernabe MD / Valentín Bernabe MD Interpreting Provider: Valentín Bernabe MD Consult Discharge Plan - Plan Referrals: Ayo Hooper DO [Partnered Physician] - (OFFICE WILL CALL PATIENT AT HOME WITH FOLLOW UP APPOINTMENT) [facility] [Primary Care Provider] - 02/24/18 1:30 pm (YOU WILL BE SEEN IN THE DISCHARGE CLINIC FOR THIS APPOINTMENT. IT IS LOCATED IN [place] [id number].)
[2018-02-14] MEDS: Azithromycin 250 MG TABLET PO SCH (20:32)
[2018-02-15] MEDS: Heparin 25,000 UNIT/500 ML D5W 25,000 UNIT/500 ML BAG IVC SCH ×2 (02:09→21:34)
[2018-02-15] MEDS: Labetalol 200 MG in D5% in Water 250 ML IVC SCH ×2 (02:10→11:03)
[2018-02-15] MEDS: *HR* Heparin 5,000 UNIT/ML VIAL IVP PRN (03:14)
[2018-02-15] MEDS: Ipratropium/Albuterol Neb 3 ML IH SCH ×4 (03:34→21:33)
[2018-02-15] MEDS: Metoprolol XL (24 HR) Succ 50 MG TAB.ER.24H PO SCH (07:46)
[2018-02-15] MEDS: Furosemide 20 MG/2 ML VIAL IVP SCH (07:46)
[2018-02-15] MEDS: Isosorbide MONOnitrate (24 HR) 30 MG TAB.ER.24H PO SCH (07:46)
[2018-02-15] MEDS: Aspirin Enteric Coated 81 MG Tablet PO SCH (07:46)
[2018-02-15] MEDS: *HR* Acetylcysteine 20% 600 MG/3 ML ORAL SYRINGE PO SCH ×2 (07:47→20:27)
[2018-02-15] MEDS: niCARdipine 20 MG/200 ML MLS IVC SCH ×2 (13:31→19:37)
--- NOTE | 2018-02-15 15:20 | Internal Med Progress Note ---
Date of Encounter: 02/15/18 Time of Encounter: 10:00 - Assessment and plan (1) Community acquired pneumonia Current Visit: Yes Status: Acute Assessment and plan: Left lower lobe pneumonia per emergency room workup. Continue IV Rocephin, azithromycin to complete a 7 day course. Blood cultures negative. Rapid influenza testing negative. Improved oxygen requirements. Qualifiers: Laterality: left Lung location: lower lobe of lung Qualified Code(s): J18.1 - Lobar pneumonia, unspecified organism (2) Acute exacerbation of chronic obstructive airways disease Current Visit: Yes Status: Acute Assessment and plan: Improved. Completed by mouth steroid course. Continue when necessary bronchodilators nebulization and supplemental oxygen if needed. (3) Abdominal aortic aneurysm (AAA) without rupture Current Visit: Yes Status: Acute Assessment and plan: CT angiogram of abdomen/pelvis shows 5.2 x 5.1 cm aneurysm of the infrarenal abdominal aorta. Vascular surgery on board. Blood pressure control. (4) Kidney stone on left side Current Visit: Yes Status: Acute Assessment and plan: Noted to have staghorn calculus on the left kidney. Urology consult appreciated , recommend outpatient follow-up. Urine culture shows no growth. (5) A-fib Current Visit: Yes Status: Acute Assessment and plan: New onset. Currently rate controlled. Discontinue Labetalol IV drip, continue Metoprolol PO; CHADS-VASC 2 score 4, continue IV Heparin rip for now, to be changed to PO Eliquis at discharge; continue telemetry. Qualifiers: Atrial fibrillation type: paroxysmal Qualified Code(s): I48.0 - Paroxysmal atrial fibrillation (6) DVT prophylaxis Current Visit: Yes Status: Acute Assessment and plan: On IV heparin. (7) CHF (congestive heart failure) Current Visit: Yes Status: Acute Assessment and plan: Echocardiogram shows LVEF 30%, severe global LV systolic dysfunction, mild cLVH , mild-moderate MR. cardiology has been on board. Left heart catheterization showed occluded PE RCA with collateral from LCA to RCA, otherwise mild, nonobstructive CAD. Continue aspirin, statin, beta danny , Imdur and Lasix. Serum creatinine noted to be improving. Fluid restriction, urine output monitoring. Qualifiers: Heart failure type: systolic Heart failure chronicity: acute Qualified Code(s): I50.21 - Acute systolic (congestive) heart failure (8) Essential hypertension Current Visit: Yes Status: Acute Assessment and plan: Blood pressure has been difficult to control, IV labetalol drip not effective. We will discontinue this and start IV nicardipine drip. Continue remaining blood pressure medications. Will plan for goal blood pressure less than 150/ 100. (9) NSTEMI (non-ST elevated myocardial infarction) Current Visit: Yes Status: Acute Assessment and plan: Plan as above. Continue medical management. - Time Spent With Patient Total time spent is greater than 50% in coordination of care (as documented) at patient's floor/unit and/or counseling patient: - Subjective Interval history: Feels better. No chest pain, palpitations. Improving shortness of breath, generalized weakness and cough. Blood pressure remains elevated, on IV heparin and labetalol drips. - Constitutional Vitals: Temp Pulse Resp BP Pulse Ox 97.6 F 66 16 149/95 94 02/15/18 11:44 02/15/18 11:44 02/15/18 15:02 02/15/18 11:44 02/15/18 15:02 General appearance: Present: A&O X 3, no acute distress, answers questions appropriately - Respiratory Respiratory exam: Present: CTAB. Absent: accessory muscle use, rales, rhonchi, wheezes - Cardiovascular Cardiovascular exam: Present: RRR, +S1, +S2. Absent: diastolic murmur, gallop, rubs, systolic murmur - GI/Abdominal GI/Abdominal exam: Present: normal bowel sounds, soft, no peritoneal signs. Absent: distended, tenderness - Extremities Exam Extremities exam: Present: full ROM, warm, radial pulses palpable and symmetrical. Absent: calf tenderness, cyanotic, pedal edema - Neurological Exam Neurological exam: Present: CN II-XII intact, oriented X3, no focal deficits. Absent: pronater drift, facial droop, speech deficit - Skin Skin exam: Present: dry, intact Internal Medicine: Result - Labs CBC & Chem 7: 02/14/18 05:03 02/14/18 05:03 - ABG Interpretation ABG results: PT/INR, D-dimer PT 11.9 Seconds (9.4-12.1) 02/11/18 09:14 Consult Discharge Plan - Plan Referrals: Ayo Hooper DO [Partnered Physician] - (OFFICE WILL CALL PATIENT AT HOME WITH FOLLOW UP APPOINTMENT) [facility] [Primary Care Provider[facility] - 02/24/18 1:30 pm (YOU WILL BE SEEN IN THE DISCHARGE CLINIC FOR THIS APPOINTMENT. IT IS LOCATED IN [place] [address].)
[2018-02-15] MEDS: cefTRIAXone 1,000 MG in Water for inj. (sterile) 20 ML 10 ML IVPB SCH (17:32)
[2018-02-15] MEDS: Azithromycin 250 MG TABLET PO SCH (20:26)
[2018-02-16 03:24] LABS: Basophils # 0.1 K/mcL (0.0-0.2); Basophils % 0.7 %; Eosinophils # 0.1 K/mcL (0.0-0.6); Eosinophils % 1.1 %; Hematocrit 43.4 % (37.5-50.1); Hemoglobin 14.4 g/dL (12.9-16.9); Immature Granulocytes % 0.7 % (0-4); Lymphocytes # 2.8 K/mcL (0.6-4.6); Lymphocytes % 32.3 %; Mean Corpuscular HGB Conc 33.2 g/dL (31.6-35.5); Mean Corpuscular Hemoglobin 30.4 pg (28.0-33.3); Mean Corpuscular Volume 91.6 fL (83.0-100.0); Mean Platelet Volume 10.7 fL (9.4-12.4); Monocytes # 0.8 K/mcL (0.0-1.3); Monocytes % 8.9 %; Neutrophils # 4.8 K/mcL (1.6-8.9); Platelet Count 275 K/mcL (140-400); Red Blood Count 4.74 M/mcL (4.19-5.50); Red Cell Distribution Width 13.9 % (11.5-14.5); Segmented Neutrophils % 56.3 %
[2018-02-16 03:46] LABS: BUN/Creatinine Ratio 24 (6-26); Blood Urea Nitrogen 28 mg/dL (8-23); Calcium 9.2 mg/dL (8.6-10.3); Carbon Dioxide 27 mEq/L (23-29); Chloride 105 mEq/L (98-107); Glucose 103 mg/dL (70-105); Osmolality,Calculated 292 (280-300); Sodium 138 mEq/L (136-145); eGFR For African Americans > 60 (> 60); eGFR For Non-African Americans > 60 (> 60)
[2018-02-16] MEDS: *HR* Metoprolol 5 MG/5 ML VIAL IVP PRN (03:55)
[2018-02-16] MEDS: Ipratropium/Albuterol Neb 3 ML IH SCH ×4 (04:03→22:17)
[2018-02-16] MEDS: Isosorbide MONOnitrate (24 HR) 30 MG TAB.ER.24H PO SCH (07:27)
[2018-02-16] MEDS: Metoprolol XL (24 HR) Succ 50 MG TAB.ER.24H PO SCH (07:27)
[2018-02-16] MEDS: Aspirin Enteric Coated 81 MG Tablet PO SCH (07:27)
[2018-02-16] MEDS: Furosemide 20 MG/2 ML VIAL IVP SCH (07:27)
--- NOTE | 2018-02-16 08:00 | Vascular/Endovas Progress Note ---
Date of Encounter: 02/15/18 Time of Encounter: 16:30 - Assessment and plan (1) Abdominal aortic aneurysm (AAA) without rupture Current Visit: Yes Status: Acute The patient has a 5.2cm infrarenal abdominal aortic aneurysm. He denies any acute abdominal, flank or back pain. His aneurysm is appropriate for endograft placement. He will scheduled for repair on 02/17/18. The patient was discussed with Dr. Wynn. (2) Community acquired pneumonia Current Visit: Yes Status: Acute Qualifiers: Laterality: left Lung location: lower lobe of lung Qualified Code(s): J18.1 - Lobar pneumonia, unspecified organism (3) Paroxysmal atrial fibrillation Current Visit: Yes Status: Acute Remains anticoagulated with heparin. (4) CAD (coronary artery disease) Current Visit: Yes Status: Chronic Left heart cath with severe one vessel disease. He continues to deny chest pain or shortness of breath. Qualifiers: Coronary Disease-Associated Artery/Lesion type: [place] artery [place] vs. transplanted heart: [place] heart Associated angina: without angina Qualified Code(s): I25.10 - Atherosclerotic heart disease of [place] coronary artery without angina pectoris (5) Essential hypertension Current Visit: Yes Status: Chronic - Subjective Interval history: The patient is without complaints today. He is alert and comfortable. He denies any abdominal, flank or back pain. He denies chest pain or shortness of breath. Vital Signs, Last 4 Hours Temp Pulse Resp BP Pulse Ox 02/16/18 07:20 97.7 F 78 18 161/130 94 02/16/18 04:03 16 94 - Physical Examination General: Present: Conversant, No Apparent Distress Neck: Absent: JVD Cardiac: Present: Normal S1 and S2, No Murmur Lungs: Present: Normal Breath Sounds, No Wheeze, Rales, Rhonchi Neuro: Present: Alert and responsive, No focal deficits noted, Motor nerves grossly intact, Sensory nerves grossly intact Vascular: Present: Normal capillary refill. Absent: Cyanosis, Edema Abdomen: Present: Soft, Non-tender. Absent: Masses Skin: Present: No rashes noted on visualized skin Results 02/16/18 03:01 02/17/18 03:09 Lab Results, Last 24 hours 02/15/18 02/15/18 02/16/18 08:54 14:18 03:01 WBC Hgb Hct Plt Count APTT 83.7 H D 68.8 H 80.9 H Sodium Potassium Chloride Carbon Dioxide BUN Creatinine Glucose Calcium 02/16/18 02/16/18 03:01 03:01 WBC 8.5 Hgb 14.4 Hct 43.4 Plt Count 275 APTT Sodium 138 Potassium 4.0 Chloride 105 Carbon Dioxide 27 BUN 28 H Creatinine 1.19 Glucose 103 Calcium 9.2 - Imaging / Other Tests CT/CTA: report reviewed, image reviewed Consult Discharge Plan - Plan Referrals: Ayo Hooper DO [Partnered Physician] - (OFFICE WILL CALL PATIENT AT HOME WITH FOLLOW UP APPOINTMENT) Mario Burden MD [Partnered Physician] - 03/29/18 1:15 pm [facility] [Primary Care Provider] - 02/24/18 1:30 pm (YOU WILL BE SEEN IN THE DISCHARGE CLINIC FOR THIS APPOINTMENT. IT IS LOCATED IN [place] [address].)
[2018-02-16] MEDS ORDERED: amLODIPine 5 MG TABLET PO SCH ×2 (10:45→10:52)
[2018-02-16] MEDS: niCARdipine 20 MG/200 ML MLS IVC SCH ×5 (11:00→22:09)
--- NOTE | 2018-02-16 14:09 | Vascular/Endovas Progress Note ---
Date of Encounter: 02/16/18 Time of Encounter: 13:00 - Assessment and plan (1) Abdominal aortic aneurysm (AAA) without rupture Current Visit: Yes Status: Chronic The patient has a 5.2cm infrarenal abdominal aortic aneurysm. He denies any acute abdominal, flank or back pain. His aneurysm is appropriate for endograft placement. He will scheduled for repair on 02/17/18. The patient was discussed with Dr. Wynn. (2) Community acquired pneumonia Current Visit: Yes Status: Acute Qualifiers: Laterality: left Lung location: lower lobe of lung Qualified Code(s): J18.1 - Lobar pneumonia, unspecified organism (3) HTN (hypertension) Current Visit: Yes Status: Acute Qualifiers: Hypertension type: essential hypertension Qualified Code(s): I10 - Essential (primary) hypertension (4) Paroxysmal atrial fibrillation Current Visit: Yes Status: Acute He remains anticoagulated with heparin. He will be transitioned to oral anticoagulation after surgery. - Subjective Interval history: He continues to feel well. He reports improved blood pressure control. He denies any abdominal, flank and back pain. He denies chest pain or shortness of breath. Vital Signs, Last 4 Hours Temp Pulse Resp BP Pulse Ox 02/16/18 11:13 98.0 F 87 18 139/85 95 - Physical Examination General: Present: Conversant, No Apparent Distress HEENT: Present: Pupils equal Neck: Absent: JVD Cardiac: Present: Normal S1 and S2 Lungs: Present: Normal Breath Sounds Neuro: Present: Alert and responsive, No focal deficits noted Vascular: Present: Normal capillary refill. Absent: Cyanosis, Edema Abdomen: Present: Soft, Non-tender Skin: Present: No rashes noted on visualized skin Results 02/16/18 03:01 02/17/18 03:09 Lab Results, Last 24 hours 02/15/18 02/16/18 02/16/18 14:18 03:01 03:01 WBC 8.5 Hgb 14.4 Hct 43.4 Plt Count 275 APTT 68.8 H 80.9 H Sodium Potassium Chloride Carbon Dioxide BUN Creatinine Glucose Calcium 02/16/18 03:01 WBC Hgb Hct Plt Count APTT Sodium 138 Potassium 4.0 Chloride 105 Carbon Dioxide 27 BUN 28 H Creatinine 1.19 Glucose 103 Calcium 9.2 Consult Discharge Plan - Plan Referrals: Ayo Hooper DO [Partnered Physician] - (OFFICE WILL CALL PATIENT AT HOME WITH FOLLOW UP APPOINTMENT) Mario Burden MD [Partnered Physician] - 03/29/18 1:15 pm [facility]PC[facility] [Primary Care Provider] - 02/24/18 1:30 pm (YOU WILL BE SEEN IN THE DISCHARGE CLINIC FOR THIS APPOINTMENT. IT IS LOCATED IN [place] [id number].)
[2018-02-16] MEDS: Heparin 25,000 UNIT/500 ML D5W 25,000 UNIT/500 ML BAG IVC SCH (14:12)
--- NOTE | 2018-02-16 15:58 | Internal Med Progress Note ---
Date of Encounter: 02/16/18 Time of Encounter: 09:45 - Assessment and plan (1) Community acquired pneumonia Current Visit: Yes Status: Acute Assessment and plan: Left lower lobe pneumonia per emergency room workup. Continue IV Rocephin, azithromycin to complete a 7 day course. Blood cultures negative. Rapid influenza testing negative. Improved oxygen requirements. Qualifiers: Laterality: left Lung location: lower lobe of lung Qualified Code(s): J18.1 - Lobar pneumonia, unspecified organism (2) Acute exacerbation of chronic obstructive airways disease Current Visit: Yes Status: Acute Assessment and plan: Improved. Completed by mouth steroid course. Continue when necessary bronchodilators nebulization and supplemental oxygen if needed. (3) Abdominal aortic aneurysm (AAA) without rupture Current Visit: Yes Status: Acute Assessment and plan: CT angiogram of abdomen/pelvis shows 5.2 x 5.1 cm aneurysm of the infrarenal abdominal aorta. Case discussed with vascular surgery, plan for endograft placement tomorrow. Blood pressure control. (4) Kidney stone on left side Current Visit: Yes Status: Acute Assessment and plan: Noted to have staghorn calculus on the left kidney. Urology consult appreciated , recommend outpatient follow-up. Urine culture shows no growth. (5) A-fib Current Visit: Yes Status: Acute Assessment and plan: New onset. Currently rate controlled. continue Metoprolol PO; CHADS-VASC 2 score 4, continue IV Heparin rip for now, to be changed to PO Eliquis at discharge; continue telemetry. Qualifiers: Atrial fibrillation type: paroxysmal Qualified Code(s): I48.0 - Paroxysmal atrial fibrillation (6) DVT prophylaxis Current Visit: Yes Status: Acute (7) CHF (congestive heart failure) Current Visit: Yes Status: Acute Assessment and plan: Echocardiogram shows LVEF 30%, severe global LV systolic dysfunction, mild cLVH , mild-moderate MR. cardiology has been on board. Left heart catheterization showed occluded PE RCA with collateral from LCA to RCA, otherwise mild, nonobstructive CAD. Continue aspirin, statin, beta danny , Imdur and Lasix. Serum creatinine noted to be improving. Fluid restriction, urine output monitoring. Qualifiers: Heart failure type: systolic Heart failure chronicity: acute Qualified Code(s): I50.21 - Acute systolic (congestive) heart failure (8) Essential hypertension Current Visit: Yes Status: Acute Assessment and plan: Blood pressure is much better controlled today. Off IV nicardipine drip. Continue beta danny, Norvasc, Imdur. (9) NSTEMI (non-ST elevated myocardial infarction) Current Visit: Yes Status: Acute Assessment and plan: Plan as above. Continue medical management. - Time Spent With Patient Total time spent is greater than 50% in coordination of care (as documented) at patient's floor/unit and/or counseling patient: - Subjective Interval history: Feels better. Denies chest pain, shortness of breath, headache, nausea, vomiting. Off IV blood pressure medication drip. - Constitutional Vitals: Temp Pulse Resp BP Pulse Ox 98.0 F 87 18 139/85 95 02/16/18 11:13 02/16/18 11:13 02/16/18 11:13 02/16/18 11:13 02/16/18 11:13 General appearance: Present: A&O X 3, no acute distress, answers questions appropriately - Respiratory Respiratory exam: Present: CTAB. Absent: accessory muscle use, rales, rhonchi, wheezes - Cardiovascular Cardiovascular exam: Present: RRR, +S1, +S2. Absent: diastolic murmur, gallop, rubs, systolic murmur - GI/Abdominal GI/Abdominal exam: Present: normal bowel sounds, soft, no peritoneal signs. Absent: distended, tenderness - Extremities Exam Extremities exam: Present: warm, radial pulses palpable and symmetrical. Absent : calf tenderness, cyanotic, pedal edema Internal Medicine: Result - Labs CBC & Chem 7: 02/16/18 03:01 02/16/18 03:01 Labs: Short CBC 02/16/18 Range/Units 03:01 WBC 8.5 (4.3-11.1) K/mcL Hgb 14.4 (12.9-16.9) g/dL Hct 43.4 (37.5-50.1) % Plt Count 275 (140-400) K/mcL Neutrophils # 4.8 (1.6-8.9) K/mcL BMP 02/16/18 03:01 Sodium 138 Potassium 4.0 Chloride 105 Carbon Dioxide 27 BUN 28 H Creatinine 1.19 Glucose 103 Calcium 9.2 - ABG Interpretation ABG results: PT/INR, D-dimer PT 11.9 Seconds (9.4-12.1) 02/11/18 09:14 Consult Discharge Plan - Plan Referrals: Ayo Hooper DO [Partnered Physician] - (OFFICE WILL CALL PATIENT AT HOME WITH FOLLOW UP APPOINTMENT) Mario Burden MD [Partnered Physician] - 03/29/18 1:15 pm [facility]PC[facility] [Primary Care Provider] - 02/24/18 1:30 pm (YOU WILL BE SEEN IN THE DISCHARGE CLINIC FOR THIS APPOINTMENT. IT IS LOCATED IN [place] [address].)
[2018-02-16] MEDS: cefTRIAXone 1,000 MG in Water for inj. (sterile) 20 ML 10 ML IVPB SCH (18:39)
[2018-02-16] MEDS: Furosemide 20 MG TABLET PO SCH (18:39)
--- NOTE | 2018-02-16 19:53 | Anesthesia Evaluation PreOp ---
Date of Encounter: 02/16/18 Time of Encounter: 19:51 - Past History Planned Operation: Endo AAA Cardiac History: [place] (NSTEMI on heparin. 02/11/18: [facility] Impressions: There is severe one vessel coronary artery disease. Occluded Proximal RCA Collaterals from the LCA to the RCA Recommendations: Optimal medical therapy of patient's disease. Aggressive risk factor modification. Consider PCI if the patient continues to have symptoms), CHF (ECHO 02/10/18: Impressions: LVEF 30%. Severe global LV systolic dysfunction. LV thrombus is not identified. Definity was not used. Mild concentric left ventricular hypertrophy. Indeterminate diastolic function. Normal right ventricular structure and function. Mild-moderate mitral regurgitation. Mild tricuspid regurgitation. Mild pulmonary hypertension.), HTN, Arrhythmia (afib), Other (AAA 5.2cm infrarenal abdominal aortic aneurysm) Pulmonary History: Smoker, COPD (acute exacerbation which is improving, maintaing sats on room air), Other (community acquired pneumonia) [employer]WE[employer]BAND [employer]APER History: Denies Any Significant HX Other Medical History: Denies Any Significant HX, Renal (L kidney stone - staghorn calculus causing mild hydronephrosis) Anesthesia History: No Prior Anesthetic Complications, Past Anesthesia (R neck lymph node, appendectomy) Alcohol Use: none Drug use: none Medications and Allergies Naproxen Sodium [Aleve] 220 mg PO BID PRN 02/10/18 [History] 3 Allergy/AdvReac Type Severity Reaction Status Date / Time No Known Allergies Allergy Verified 02/10/18 07:57 - Meds/Allergy Pre-op Review Medications Reviewed: Yes Allergies Reviewed: Yes Beta Blockers on Current Med List: Yes If Beta Blockers taken, Date/Time (Last Dose taken): 02/16/18 727am Anesthesia Results - Labs 02/16/18 03:01 02/16/18 03:01 Laboratory Tests 02/11/18 02/16/18 09:14 03:01 PT 11.9 INR 1.1 APTT 80.9 H - Imaging EKG: report reviewed (Afib) Additional studies: CT abdomen VASCULAR: Fusiform aneurysm of the infrarenal abdominal aorta, measuring up to 5.2 cm x 5.1 cm, beginning approximately 2.8 cm distal to the origin of the right renal artery, and extending to near the bifurcation. Associated mural thrombus within the anterior to left anterolateral portion of the aneurysm. Focal fenestrated dissection flap in the left lateral portion of the aneurysm proximally. Moderate atherosclerosis. Mild to moderate stenosis of the distal left renal artery at its bifurcation. 0.6 cm x 0.3 cm outpouching arising from the distal left renal artery just proximal to this with adjacent soft tissue density. 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 Anesthesia Exam Vital Signs/O2 Sat, Most Current Temp Pulse Resp BP Pulse Ox 97.7 F 76 18 170/109 97 02/16/18 18:41 02/16/18 18:41 02/16/18 18:41 02/16/18 18:41 02/16/18 18:41 Height: 1.83m Weight: 102kg NPO (# of Hours): >8 - HEENT Pupil (Motor): Pupils equal, EOMI Mallampati: III Teeth: Edentulous Denture Type: Upper: Complete, Lower: Complete Oral Opening: Greater than 3 - SWEATBAND SHAPER LOC: Oriented SWEAT[employer]AND SHAPER Motor: Normal RUE, Normal LUE, Normal RLE, Normal LLE, Normal Face [employer]WE[employer]APER Sensory: Normal: RUE, LUE, RLE, LLE, Face - Cardiac Rhythm: Irregular - Pulmonary Breath Sounds: bilateral Clear Anesthesia Assess/Plan ASA Score: 4 (AAA, CHF EF 30%, LHC show occlusion of RCA with good collateral) Modified Selene Scale for Level of Consciousness: Cooperative, oriented, and tranquil Anesthetic Plan: General (r/b/a discussed with patient including risk of prolonged post op intubation and ICU stay) Monitoring Plan: Standard Monitors, A-Line Recovery Plan: ICU
[2018-02-16] MEDS: Azithromycin 250 MG TABLET PO SCH (20:36)
[2018-02-17] MEDS: niCARdipine 20 MG/200 ML MLS IVC SCH (02:12)
[2018-02-17] MEDS: Heparin 25,000 UNIT/500 ML D5W 25,000 UNIT/500 ML BAG IVC SCH (03:11)
[2018-02-17 04:03] LABS: BUN/Creatinine Ratio 21 (6-26); Blood Urea Nitrogen 24 mg/dL (8-23); Calcium 9.4 mg/dL (8.6-10.3); Carbon Dioxide 28 mEq/L (23-29); Chloride 103 mEq/L (98-107); Glucose 102 mg/dL (70-105); Osmolality,Calculated 292 (280-300); Potassium 3.6 mEq/L (3.5-5.1); Sodium 139 mEq/L (136-145); eGFR For African Americans > 60 (> 60); eGFR For Non-African Americans > 60 (> 60)
[2018-02-17] MEDS: Ipratropium/Albuterol Neb 3 ML IH SCH ×4 (04:23→21:54)
[2018-02-17] MEDS ORDERED: Heparin 1,000 UNITS/500 mL 1,500 ML ONE (07:28)
[2018-02-17] MEDS ORDERED: Vancomycin 1,000 MG VIAL ONE ×2 (07:29→10:24)
[2018-02-17] MEDS: Metoprolol XL (24 HR) Succ 50 MG TAB.ER.24H PO SCH (07:30)
[2018-02-17] MEDS ORDERED: Heparin 1,000 UNITS/500 mL 500 ML ONE (08:13)
[2018-02-17] MEDS ORDERED: Lidocaine -MPF 2% 2 ML VIAL ONE (08:41)
[2018-02-17] MEDS ORDERED: Lidocaine -MPF 4% 5 ML AMPUL ONE (08:41)
[2018-02-17] MEDS ORDERED: *HR* Succinylcholine 200 MG/10 ML VIAL IVP ONE (08:41)
[2018-02-17] MEDS ORDERED: *HR* Rocuronium Bromide 50 MG/5 ML VIAL ONE ×2 (08:41→12:02)
[2018-02-17] MEDS ORDERED: Dexamethasone 4 MG/ML VIAL ONE ×2 (08:41→10:15)
[2018-02-17] MEDS ORDERED: *HR* FentaNYL (PF) 100 MCG/2 ML VIAL ONE ×2 (08:41→10:49)
[2018-02-17] MEDS ORDERED: *HR* Midazolam HCl 2 MG/2 ML VIAL ONE (08:41)
[2018-02-17] MEDS ORDERED: Ondansetron 4 MG/2 ML VIAL ONE (08:41)
[2018-02-17] MEDS ORDERED: *HR* Propofol 200 MG/20 ML VIAL IVP ONE (08:42)
[2018-02-17] MEDS ORDERED: *HR* Etomidate 40 MG/20 ML VIAL IVP ONE (08:43)
--- NOTE | 2018-02-17 09:22 | Anesthesia Procedures ---
Date of Encounter: 02/17/18 Time of Encounter: 09:21 Procedures: Anesthesia - Arterial Line Consent obtained: written consent Time out performed: Yes Local Anesthetic: Lidocaine 1% Amount of Anesthetic used (mls): 1 Size (Gauge): 20 Length (inches): 1 3/4 Technique Used: sterile prep, guide wire technique, direct puncture technique Post-Procedure: line taped into place, dry sterile dressing placed Patient tolerated procedure: well, no complications Complications: none Site: Radial L Vitals: 126/90, hr 75, spo2 98, rr 16
[2018-02-17] MEDS: Isosorbide MONOnitrate (24 HR) 30 MG TAB.ER.24H PO SCH (10:19)
[2018-02-17] MEDS: Aspirin Enteric Coated 81 MG Tablet PO SCH (10:19)
[2018-02-17] MEDS: Furosemide 20 MG TABLET PO SCH ×2 (10:19→17:58)
[2018-02-17] MEDS ORDERED: Isovue-300 150 ML INFUS..BTL IV ONE (10:24)
[2018-02-17] MEDS ORDERED: *HR* PHENYLEPHRINE 1,000 MCG/10 ML SYRINGE IVP ONE (11:02)
[2018-02-17] MEDS ORDERED: ceFAZolin 2,000 MG in Water for inj. (sterile) 20 ML 20 ML IVP ONE (11:12)
[2018-02-17] MEDS ORDERED: *HR* Heparin 5,000 UNIT/ML VIAL ONE (11:23)
[2018-02-17] MEDS ORDERED: Heparin 1,000 UNITS/500 mL 1,000 ML ONE (11:51)
[2018-02-17] MEDS ORDERED: Isovue-300 50 ML VIAL IVP ONE ×2 (12:01→12:18)
[2018-02-17] MEDS ORDERED: *HR* OxyCODONE Immed Rel 5 MG TABLET PO PRN ×2 (12:23→16:58)
[2018-02-17] MEDS ORDERED: *HR* Promethazine 25 MG/ML VIAL IVP PRN (12:23)
[2018-02-17] MEDS ORDERED: Ondansetron 4 MG/2 ML VIAL IVP ONE (12:23)
[2018-02-17] MEDS ORDERED: *HR* FentaNYL (PF) 100 MCG/2 ML VIAL IVP PRN (12:23)
[2018-02-17] MEDS ORDERED: MORPHINE SUL Oral CONC 10 MG/0.5 ML ORAL.SYG SL PRN (12:23)
[2018-02-17] MEDS ORDERED: *HR* Labetalol 20 MG/4 ML SYRINGE IVP PRN (12:23)
[2018-02-17] MEDS ORDERED: Neostigmine Methylsulfate 3 MG/3 ML SYRINGE ONE (12:53)
[2018-02-17] MEDS ORDERED: Acetaminophen IV 1,000 MG/100 ML INFUS..BTL ONE (13:00)
--- NOTE | 2018-02-17 13:35 | Operative Note ---
Date of procedure: 02/17/18 Pre-op diagnosis: 5.2cm Infrarenal abdominal aortic aneurysm Post-op diagnosis: same Procedure: 1. Introduction of catheter into the aorta via right common femoral artery. 2. Introduction of catheter into the aorta via left common femoral artery. 3. Right femoral vessel exposure for endograft placement. 4. Left femoral vessel exposure for endograft placement. 5. Endograft repair of abdominal aortic aneurysm with Cook Zenith graft and two docking limbs including radiologic supervision and interpretation. Complications: None Anesthesia: GETA Surgeon: Mario Burden Was there an registrar assistant present: Yes Paddock Judge: Brando Ledesma Estimated blood loss (cc): 100 Specimen: None Condition: stable Disposition: PACU Procedure in Detail: Indications: The patient is a 67 year old male with a history of COPD, congestive heart failure, atrial fibrillation who was found to have an abdominal aortic aneurysm. His anatomy is acceptable for endograft placement. Surgery is recommended to reduce his risk of rupture. Procedure: The patient was identified, brought to the operating room and placed in the supine position on the operating room table. After induction of general endotracheal anesthesia, the patient was cleaned and draped in normal sterile fashion. Oblique incisions were made over both groins sharply. Hemostasis was obtained with electrocautery. Using blunt and sharp and electrocautery dissection, the bilateral common, deep and superficial femoral arteries were dissected circumferentially and surrounded with Vesseloops. At this point, the patient received 5000 units of heparin intravenously and then bilateral femoral punctures with large-bore needles were performed. Bentson wires were advanced into the aorta under fluoroscopic view. Given the anatomy, the main body was selected to be the right side of the patient. The needles were exchanged for bilateral #8-Spanish sheaths and a long Pigtail catheter was advanced over the right wire into the aortic arch. The wire was replaced with a Lunderquist wire. The catheter was removed and repositioned in the suprarenal aorta via the left femoral artery. The main body was inserted over the Lunderquist wire with the contralateral limb being in the anterolateral position. An aortogram was then performed at the level of the renal artery. The graft was positioned just inferior to the renal arteries and the first 2 segments were deployed. Again an aortogram revealed adequate infrarenal placement. The graft was then further opened to the contralateral limb exposed. A final angiogram was performed confirming adequate infrarenal placement. The suprarenal stent was deployed in the usual fashion. The contralateral limb was then selected with a Bentson wire using a guiding catheter. Intragraft placement of the wire was confirmed by placing the pigtail and spinning it freely as well as injecting a small amount of contrast. The Bentson wire was then exchanged for a Lunderquist wire. The main body was completely deployed and the top cap was retrieved. The introducer was tehn removed. An oblique view of the right pelvis was performed to determine the length of the graft on the right. The graft extension was then advanced on the right and positioned in the usual fashion. An oblique view of the pelvis was performed with contrast to size the left extension limb. The left sheath was exchanged for the extension limb which was advanced under fluoroscopic view and positioned. The limb was then deployed. The introducer was removed. Upon completion of the graft docking limb extensions, a Coda balloon was then advanced into the graft proximal and distal endpoints as well as overlap were expanded with gentle pressure. The balloon was left in the suprarenal position and a Flush catheter was placed in the suprarenal aorta. A Flush completion angiogram revealed no evidence of an endoleak. Tension was applied to the Vesseloops in the groin. The bilateral sheaths were then removed. After confirming hemodynamic stability, the wires were then removed. The bilateral arteriotomies were repaired with a running 6-0 Prolene. Antibiotic irrigation was infused into the groin. Platelet rich and platelet poor plasma were infused into the incisions. The bilateral groins were closed with a single layer of 2-0 Vicryl followed by two layers of 3-0 Vicryl followed by a layer of 3-0 monocryl in the subcuticular layer. Sterile dressings were applied. The patient was then extubated and taken to the recovery room in stable condition. Device Sizes: 1. Main Body: [id number] 2. Left Limb: [id number] 2. Right Limb: [id number]
[2018-02-17] MEDS ORDERED: Ringers Solution, Lactated 1,000 ML ONE (14:25)
[2018-02-17] MEDS ORDERED: CloNIDine Patch 0.1 MG PATCH (WEEKLY) ONE (14:46)
[2018-02-17] MEDS ORDERED: NiCARdipine 2.5 MG/10 ML Syringe IVPB ONE (14:47)
[2018-02-17] MEDS ORDERED: niCARdipine 40 MG/200 ML MLS IVC SCH (15:00)
--- NOTE | 2018-02-17 15:18 | Anesthesia Evaluation Post Op ---
Date of Encounter: 02/17/18 Time of Encounter: 15:20 - Vital Signs Vital Signs: Vital Signs/O2 Sat/Glucose, Most Current Temp Pulse Resp BP Pulse Ox 02/17/18 13:58 67 18 158/99 100 02/17/18 13:48 66 18 142/106 98 02/17/18 13:38 60 18 140/96 98 02/17/18 13:28 97.8 F 61 12 125/88 96 - Lungs Lungs: Clear Ascult./Percussion - Airway Airway: Non-obstructed - Cardiovascular Regular Rate - Mental Status Mental Status: Confused - Pain Pain Scale: 1 - Nausea Vomiting Nausea Vomiting: Not Present - Hydration Hydration: NPO - Discharge PostOp Status: Transfer Patient to floor
[2018-02-17] MEDS ORDERED: Acetaminophen 325 MG TABLET PO PRN (15:24)
[2018-02-17] MEDS ORDERED: Naloxone 0.4 MG/ML INJ IVP PRN ×2 (15:24)
[2018-02-17] MEDS ORDERED: Ipratropium/Albuterol Neb 3 ML IH PRN (15:24)
[2018-02-17] MEDS: niCARdipine 40 MG/200 ML MLS IVC SCH (16:15)
--- NOTE | 2018-02-17 16:39 | Internal Med Progress Note ---
Date of Encounter: 02/17/18 Time of Encounter: 16:37 - Assessment and plan (1) Community acquired pneumonia Current Visit: Yes Status: Acute Assessment and plan: Left lower lobe pneumonia per emergency room workup. Completed a 7-day course of IV Rocephin, azithromycin. Blood cultures negative. Rapid influenza testing negative. Qualifiers: Laterality: left Lung location: lower lobe of lung Qualified Code(s): J18.1 - Lobar pneumonia, unspecified organism (2) Acute exacerbation of chronic obstructive airways disease Current Visit: Yes Status: Acute Assessment and plan: Improved. Completed by mouth steroid course. Continue when necessary bronchodilators nebulization and supplemental oxygen if needed. (3) Abdominal aortic aneurysm (AAA) without rupture Current Visit: Yes Status: Chronic Assessment and plan: CT angiogram of abdomen/pelvis shows 5.2 x 5.1 cm aneurysm of the infrarenal abdominal aorta. Vascular surgery on board, underwent AAA repair today; continue pain control with PRN Oxycodone, BP control, 1:1 sitter for safety. (4) Kidney stone on left side Current Visit: Yes Status: Acute (5) A-fib Current Visit: Yes Status: Acute Assessment and plan: New onset. Currently rate controlled. continue Metoprolol PO; CHADS-VASC 2 score 4, has been on IV Heparin drip, will start PO Eliquis when cleared by vascular surgery/at discharge; continue telemetry. Qualifiers: Atrial fibrillation type: paroxysmal Qualified Code(s): I48.0 - Paroxysmal atrial fibrillation (6) DVT prophylaxis Current Visit: Yes Status: Acute Assessment and plan: on EPCDs; (7) CHF (congestive heart failure) Current Visit: Yes Status: Acute Assessment and plan: Echocardiogram shows LVEF 30%, severe global LV systolic dysfunction, mild cLVH , mild-moderate MR. cardiology has been on board. Left heart catheterization showed occluded PE RCA with collateral from LCA to RCA, otherwise mild, nonobstructive CAD. Continue aspirin, statin, beta danny , Imdur and Lasix. Serum creatinine noted to be improving. Fluid restriction, urine output monitoring. Qualifiers: Heart failure type: systolic Heart failure chronicity: acute Qualified Code(s): I50.21 - Acute systolic (congestive) heart failure (8) Essential hypertension Current Visit: Yes Status: Chronic Assessment and plan: Blood pressure again noted to be uncontrolled; restarted on IV Nicardipine drip ; continue PO meds; monitor closely due to recent vascular surgery/AAA repair; Continue beta danny, Norvasc, Imdur. (9) NSTEMI (non-ST elevated myocardial infarction) Current Visit: Yes Status: Acute Assessment and plan: Plan as above. Continue medical management. - Time Spent With Patient Total time spent is greater than 50% in coordination of care (as documented) at patient's floor/unit and/or counseling patient: - Subjective Interval history: Returned from OR; noted to have been altered and combative in PACU, now on wrist restraints and 1:1 sitter; Reports severe abdominal pain; requests for water; - Constitutional Vitals: Temp Pulse Resp BP Pulse Ox 97.5 F L 82 16 153/81 98 02/17/18 15:34 02/17/18 15:34 02/17/18 15:34 02/17/18 15:34 02/17/18 15:34 General appearance: Present: A&O X 2, mild distress, answers questions appropriately - Respiratory Respiratory exam: Present: CTAB (anterolaterally). Absent: accessory muscle use , rales, rhonchi, wheezes - Cardiovascular Cardiovascular exam: Present: RRR, +S1, +S2. Absent: diastolic murmur, gallop, rubs, systolic murmur - GI/Abdominal GI/Abdominal exam: Present: normal bowel sounds, soft (diffuse tenderness to light palpation), no peritoneal signs. Absent: distended, tenderness - Extremities Exam Extremities exam: Present: full ROM, warm, radial pulses palpable and symmetrical. Absent: calf tenderness, cyanotic, pedal edema - Neurological Exam Neurological exam: Present: CN II-XII intact, oriented X3, no focal deficits. Absent: pronater drift, facial droop, speech deficit Internal Medicine: Result - Labs CBC & Chem 7: 02/16/18 03:01 02/17/18 03:09 Labs: BMP 02/17/18 03:09 Sodium 139 Potassium 3.6 Chloride 103 Carbon Dioxide 28 BUN 24 H Creatinine 1.13 Glucose 102 Calcium 9.4 - ABG Interpretation ABG results: PT/INR, D-dimer PT 11.9 Seconds (9.4-12.1) 02/11/18 09:14 - Impressions Impressions Chest X-Ray 02/16/18 16:05 IMPRESSION: Grossly stable left basilar atelectasis or pneumonia. D/ / Ten Nava MD / Ten Nava MD Interpreting Provider: Ten Nava MD Fluoroscopy 02/17/18 11:10 IMPRESSION: Intraprocedural fluoroscopic spot images as above. See separate procedure report for more information. D/ / 02/17/2018 13:23:04 Javier Brizuela MD / marshall Interpreting Provider: Javier Brizuela MD X-Ray 02/17/18 11:10 IMPRESSION: Intraprocedural fluoroscopic spot images as above. See separate procedure report for more information. D/ / 02/17/2018 13:23:04 Javier Brizuela MD / marshall Interpreting Provider: Javier Brizuela MD Consult Discharge Plan - Plan Referrals: Ayo Hooper DO [Partnered Physician] - (OFFICE WILL CALL PATIENT AT HOME WITH FOLLOW UP APPOINTMENT) Mario Burden MD [Partnered Physician] - 03/29/18 1:15 pm [facility]PC[facility] [Primary Care Provider] - 02/24/18 1:30 pm (YOU WILL BE SEEN IN THE DISCHARGE CLINIC FOR THIS APPOINTMENT. IT IS LOCATED IN [place] [address].)
[2018-02-17] MEDS ORDERED: ceFAZolin 2,000 MG in 0.9 % Sodium Chloride 100 ML IVPB SCH (17:00)
--- NOTE | 2018-02-17 21:26 | Operative Note ---
Date of procedure: 02/17/18 Pre-op diagnosis: Abdominal aortic aneurysm Post-op diagnosis: same Procedure: Bilateral open femoral exposure Bilateral placement of catheter into aorta for nonselective catheterization and angiograms with radiologic supervision and interpretation Endograft repair of abdominal aortic aneurysm using a Cook Zenith endovascular prosthesis with 3 components. Main body placed via right groin. Complications: None Anesthesia: CAYDENA Surgeon: Mario Burden Co-Surgeon: Brando Ledesma Was there an medical receptionist medical assistant present: No Estimated blood loss (cc): 100 Specimen: None Condition: stable Disposition: PACU Procedure in Detail: History Bryce Jiménez is a 67-year-old white male with a history of significant cardiac disease including atrial fibrillation and congestive heart failure. He was identified as having an abdominal aortic aneurysm that measured 5.[address] angiogram demonstrated the anatomy was appropriate for endovascular repair and due to his comorbid conditions and endovascular approach was recommended. Procedure After informed consent was obtained the patient was taken to the operating room. General endotracheal anesthesia was established under arterial line pressure monitoring. The abdomen groin and upper thighs were sterilely prepped and draped. A 2 team surgical approach was utilized for this procedure. This was due to the patient's comorbid conditions that include significant cardiac disease with congestive heart failure and atrial fibrillation. This also permitted rapid intraoperative complex decision making and also minimized prolonged general endotracheal anesthesia and minimize blood loss. Incisions were made in the groin to dissect and expose the common femoral artery bilaterally. After appropriate control was obtained the patient was given 5000 units of heparin. An 18-gauge needle was used to puncture the artery retrograde. A Bentson wire was then inserted into the abdominal aorta. This was followed by a 8 Amharic sheath and dilator. The dilator was removed and the sheath was aspirated and flushed. The marker pigtail catheter was then advanced up on the patient's right side. This was then placed into the descending thoracic arch. It was exchanged then for a Lunderquist wire. The pigtail catheter was then removed and placed via the left side. An aortogram was then performed. The renal location was marked with a left renal being the lower of the 2 vessels. The main body stent graft was then selected. This was a 26 x 111 mm Zenith stent graft with suprarenal fixation. This device was then inserted via the right side and deployed with exposure of the docking limb on the left side. The docking limb was then cannulated from the left side. With this accomplished the appropriate location of the wire was confirmed. A Lunderquist wire was then inserted and antrum performed of the left pelvic area to preserve the left iliac bifurcation. On the left side a 16 x 74 mm spiral Z limb was selected and deployed. On the right side then the remaining portion of the graft was totally deployed and then a third and final component was deployed in order to completely treat the iliac segment. This was also a 16 x 74 spiral Z limb. With the 3 components in position and the suprarenal fixation assured a 32 mm Rollins balloon was then placed first on the right side than on the left gently expand the endovascular stent graft. With this accomplished the pigtail catheter was then reinserted via the right side. An aortogram was then obtained. This demonstrated patency and preservation of both renal arteries as well as both iliac bifurcations. There were no findings of endovascular leak. The carrier devices and wires were then removed from the groin. The puncture sites were closed using 6-0 Prolene suture. After appropriate backbleeding and flushing the clamps were removed and pulsatile flow was restored into the lower extremities without hemodynamic distress. The wounds were then irrigated. The wounds were closed with absorbable suture. A dry sterile dressing was applied. There were no intraoperative complications. The patient tolerated the procedure well. The patient was taken from the operating room extubated to the recovery room in stable condition.
[2018-02-18] MEDS: *HR* HYDROcodone/Acet 5/325 mg TABLET PO PRN ×3 (00:47→21:27)
[2018-02-18] MEDS: Ipratropium/Albuterol Neb 3 ML IH SCH ×4 (04:19→22:47)
[2018-02-18 04:57] LABS: Basophils % 0.1 %; Hematocrit 43.3 % (37.5-50.1); Hemoglobin 14.3 g/dL (12.9-16.9); Immature Granulocytes % 0.6 % (0-4); Lymphocytes # 0.9 K/mcL (0.6-4.6); Lymphocytes % 6.6 %; Mean Corpuscular Hemoglobin 31.1 pg (28.0-33.3); Mean Corpuscular Volume 94.1 fL (83.0-100.0); Mean Platelet Volume 10.7 fL (9.4-12.4); Monocytes % 7.4 %; Platelet Count 288 K/mcL (140-400); Red Cell Distribution Width 14.2 % (11.5-14.5); Segmented Neutrophils % 85.3 %
[2018-02-18 04:58] LABS: Neutrophils # 11.9 K/mcL (1.6-8.9)
[2018-02-18 05:13] LABS: BUN/Creatinine Ratio 19 (6-26); Blood Urea Nitrogen 19 mg/dL (8-23); Calcium 8.8 mg/dL (8.6-10.3); Carbon Dioxide 26 mEq/L (23-29); Chloride 104 mEq/L (98-107); Glucose 100 mg/dL (70-105); Osmolality,Calculated 284 (280-300); Potassium 4.4 mEq/L (3.5-5.1); Sodium 136 mEq/L (136-145); eGFR For African Americans > 60 (> 60); eGFR For Non-African Americans > 60 (> 60)
[2018-02-18] MEDS: Metoprolol XL (24 HR) Succ 50 MG TAB.ER.24H PO SCH (08:57)
[2018-02-18] MEDS: Furosemide 20 MG TABLET PO SCH ×2 (08:57→16:02)
[2018-02-18] MEDS: amLODIPine 5 MG TABLET PO SCH (08:57)
[2018-02-18] MEDS: Aspirin Enteric Coated 81 MG Tablet PO SCH (08:57)
--- NOTE | 2018-02-18 09:13 | Electrocardiograph Report ---
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
--- NOTE | 2018-02-18 14:51 | Vascular/Endovas Progress Note ---
Date of Encounter: 02/18/18 Time of Encounter: 14:49 - Assessment and plan (1) Abdominal aortic aneurysm (AAA) without rupture Current Visit: Yes Status: Chronic Patient is doing well following endovascular repair of abdominal aortic aneurysm. I reviewed with the patient his activity status postoperatively. He has no signs of bleeding and the oral anticoagulation may be initiated this afternoon. (2) A-fib Current Visit: Yes Status: Acute Patient is hemodynamically stable with new onset atrial fibrillation. Patient is rate controlled. Patient may have anticoagulation medication initiated this afternoon. Qualifiers: Atrial fibrillation type: paroxysmal Qualified Code(s): I48.0 - Paroxysmal atrial fibrillation - Subjective Interval history: Mr. Bryce Jiménez is a 67-year-old white male that underwent an urgent endovascular stent graft repair of abdominal aortic aneurysm yesterday. The patient had an uneventful operative course. On my visit with the patient today on postoperative day #1 he has no complaints. He is feeling well. He has no issues related to the operation. Vital Signs, Last 4 Hours Temp Pulse Resp BP Pulse Ox 02/18/18 11:30 97.7 F 78 18 124/84 94 02/18/18 11:09 97.7 F 78 18 124/84 94 - Physical Examination General: Present: Conversant, No Apparent Distress, Well developed, Well nourished HEENT: Present: Atraumatic, Trachea midline Neck: Absent: JVD Cardiac: Present: Irregular Rhythm Lungs: Present: Decreased breath sounds Neuro: Present: Alert and responsive, No focal deficits noted, Cranial nerves grossly intact Vascular: Present: Normal capillary refill, Surgical incisions (Bilateral groin dressings are dry and intact.), Other (Patient has ecchymosis in the groin and perineal areas). Absent: Cyanosis, Edema Abdomen: Present: Soft, Non-tender - VTE Documentation of Mechanical Device: Intermittent pneumatic compression device Results 02/18/18 04:13 02/18/18 04:13 Lab Results, Last 24 hours 02/18/18 02/18/18 04:13 04:13 WBC 14.0 H D Hgb 14.3 Hct 43.3 Plt Count 288 Sodium 136 Potassium 4.4 Chloride 104 Carbon Dioxide 26 BUN 19 Creatinine 1.02 Glucose 100 Calcium 8.8 Consult Discharge Plan - Plan Referrals: Ayo Hooper DO [Partnered Physician] - (OFFICE WILL CALL PATIENT AT HOME WITH FOLLOW UP APPOINTMENT) Mario Burden MD [Partnered Physician] - 03/29/18 1:15 pm [facility]PCP [Primary Care Provider] - 02/24/18 1:30 pm (YOU WILL BE SEEN IN THE DISCHARGE CLINIC FOR THIS APPOINTMENT. IT IS LOCATED IN [place] [address].)
--- NOTE | 2018-02-18 16:42 | Internal Med Progress Note ---
Date of Encounter: 02/18/18 Time of Encounter: 10:00 - Assessment and plan (1) Abdominal aortic aneurysm (AAA) without rupture Current Visit: Yes Status: Chronic Assessment and plan: CT angiogram of abdomen/pelvis shows 5.2 x 5.1 cm aneurysm of the infrarenal abdominal aorta. Vascular surgery on board, underwent AAA repair postoperative day 1; continue pain control with PRN Oxycodone, blood pressure noted to be stable. Continue oral medications, off nifedipine drip. Discontinue 1:1 sitter as patient is alert and oriented today. Noted to have mild leukocytosis, likely related to surgery. Hemoglobin is stable. (2) Community acquired pneumonia Current Visit: Yes Status: Acute Assessment and plan: Left lower lobe pneumonia per emergency room workup. Completed a 7-day course of IV Rocephin, azithromycin. Blood cultures negative. Rapid influenza testing negative. Qualifiers: Laterality: left Lung location: lower lobe of lung Qualified Code(s): J18.1 - Lobar pneumonia, unspecified organism (3) Acute exacerbation of chronic obstructive airways disease Current Visit: Yes Status: Resolved Assessment and plan: Improved. Completed by mouth steroid course. Continue when necessary bronchodilators nebulization and supplemental oxygen if needed. (4) Kidney stone on left side Current Visit: Yes Status: Acute (5) A-fib Current Visit: Yes Status: Acute Assessment and plan: New onset. Currently rate controlled. continue Metoprolol PO; CHADS-VASC 2 score 4, has been on IV Heparin drip, will start PO Eliquis today. Discussed with vascular surgery. continue telemetry. Qualifiers: Atrial fibrillation type: paroxysmal Qualified Code(s): I48.0 - Paroxysmal atrial fibrillation (6) DVT prophylaxis Current Visit: Yes Status: Acute (7) CHF (congestive heart failure) Current Visit: Yes Status: Acute Assessment and plan: Echocardiogram shows LVEF 30%, severe global LV systolic dysfunction, mild cLVH , mild-moderate MR. cardiology has been on board. Left heart catheterization showed occluded PE RCA with collateral from LCA to RCA, otherwise mild, nonobstructive CAD. Continue aspirin, statin, beta danny , Imdur and Lasix. Will start low-dose CAR inhibitor. Serum creatinine normalized. Fluid restriction, urine output monitoring. Qualifiers: Heart failure type: systolic Heart failure chronicity: acute Qualified Code(s): I50.21 - Acute systolic (congestive) heart failure (8) Essential hypertension Current Visit: Yes Status: Chronic (9) NSTEMI (non-ST elevated myocardial infarction) Current Visit: Yes Status: Acute - Time Spent With Patient Total time spent is greater than 50% in coordination of care (as documented) at patient's floor/unit and/or counseling patient: - Subjective Interval history: Reports feeling well. Alert and oriented, at baseline mentation today. Improved abdominal pain. No chest pain, dyspnea, nausea, vomiting. Blood pressure is noted to be better controlled. - Constitutional Vitals: Temp Pulse Resp BP Pulse Ox 98.8 F 76 16 122/74 93 02/18/18 16:05 02/18/18 16:05 02/18/18 16:20 02/18/18 16:05 02/18/18 16:20 General appearance: Present: A&O X 3, answers questions appropriately - Respiratory Respiratory exam: Present: CTAB. Absent: accessory muscle use, rales, rhonchi, wheezes - Cardiovascular Cardiovascular exam: Present: RRR, +S1, +S2. Absent: diastolic murmur, gallop, rubs, systolic murmur - GI/Abdominal GI/Abdominal exam: Present: normal bowel sounds, soft, no peritoneal signs. Absent: distended, tenderness Internal Medicine: Result - Labs CBC & Chem 7: 02/18/18 04:13 02/18/18 04:13 Labs: Short CBC 02/18/18 Range/Units 04:13 WBC 14.0 H D (4.3-11.1) K/mcL Hgb 14.3 (12.9-16.9) g/dL Hct 43.3 (37.5-50.1) % Plt Count 288 (140-400) K/mcL Neutrophils # 11.9 H (1.6-8.9) K/mcL BMP 02/18/18 04:13 Sodium 136 Potassium 4.4 Chloride 104 Carbon Dioxide 26 BUN 19 Creatinine 1.02 Glucose 100 Calcium 8.8 - ABG Interpretation ABG results: PT/INR, D-dimer PT 11.9 Seconds (9.4-12.1) 02/11/18 09:14 - VTE Documentation of Mechanical Device: Intermittent pneumatic compression device Consult Discharge Plan - Plan Referrals: Ayo Hooper DO [Partnered Physician] - (OFFICE WILL CALL PATIENT AT HOME WITH FOLLOW UP APPOINTMENT) Mario Burden MD [Partnered Physician] - 03/29/18 1:15 pm [facility]PC[facility] [Primary Care Provider] - 02/24/18 1:30 pm (YOU WILL BE SEEN IN THE DISCHARGE CLINIC FOR THIS APPOINTMENT. IT IS LOCATED IN [place] [id number].)
[2018-02-18] MEDS: niCARdipine 40 MG/200 ML MLS IVC SCH (19:17)
[2018-02-18] MEDS: Apixaban 5 MG TABLET PO SCH (21:18)
[2018-02-19 02:56] LABS: Basophils % 0.2 %; Eosinophils % 0.3 %; Hematocrit 43.6 % (37.5-50.1); Hemoglobin 14.5 g/dL (12.9-16.9); Immature Granulocytes % 0.7 % (0-4); Lymphocytes # 2.3 K/mcL (0.6-4.6); Lymphocytes % 17.9 %; Mean Corpuscular HGB Conc 33.3 g/dL (31.6-35.5); Mean Corpuscular Hemoglobin 31.1 pg (28.0-33.3); Mean Corpuscular Volume 93.6 fL (83.0-100.0); Mean Platelet Volume 10.3 fL (9.4-12.4); Monocytes # 1.5 K/mcL (0.0-1.3); Monocytes % 12.1 %; Neutrophils # 8.8 K/mcL (1.6-8.9); Platelet Count 268 K/mcL (140-400); Red Blood Count 4.66 M/mcL (4.19-5.50); Red Cell Distribution Width 14.2 % (11.5-14.5); Segmented Neutrophils % 68.8 %
[2018-02-19] MEDS: Ipratropium/Albuterol Neb 3 ML IH SCH ×2 (04:57→11:12)
[2018-02-19] MEDS: *HR* HYDROcodone/Acet 5/325 mg TABLET PO PRN (05:25)
[2018-02-19] MEDS: amLODIPine 5 MG TABLET PO SCH (07:31)
[2018-02-19] MEDS: Metoprolol XL (24 HR) Succ 50 MG TAB.ER.24H PO SCH (07:32)
[2018-02-19] MEDS: Apixaban 5 MG TABLET PO SCH (07:32)
[2018-02-19] MEDS: Furosemide 20 MG TABLET PO SCH (07:32)
[2018-02-19] MEDS: Aspirin Enteric Coated 81 MG Tablet PO SCH (07:32)
[2018-02-19 08:42] VITALS: BP 143/90
--- NOTE | 2018-02-19 10:39 | Vascular/End[facility]as Progress Note ---
Date of Encounter: 02/19/18 Time of Encounter: 10:37 - Assessment and plan (1) Abdominal aortic aneurysm (AAA) without rupture Current Visit: Yes Status: Chronic Patient is doing well following endovascular repair of abdominal aortic aneurysm. I reviewed with the patient his activity status postoperatively the patient will be discharged this morning. Patient is to follow-up with Dr. Burden. I reviewed with him wound care issues. (2) A-fib Current Visit: Yes Status: Acute Patient is hemodynamically stable with new onset atrial fibrillation. Patient is rate controlled. Qualifiers: Atrial fibrillation type: paroxysmal Qualified Code(s): I48.0 - Paroxysmal atrial fibrillation - Subjective Interval history: Mr. Bryce Jiménez is a 67-year-old white male that underwent an urgent endovascular stent graft repair of abdominal aortic aneurysm on . The patient had an uneventful operative course. On my visit with the patient today on postoperative day #2 he has no complaints. He is feeling well. He has no issues related to the operation. Vital Signs, Last 4 Hours Temp Pulse Resp BP Pulse Ox 02/19/18 07:05 98.8 F 90 17 143/90 95 - Physical Examination General: Present: Conversant, No Apparent Distress, Well developed, Well nourished Neuro: Present: Alert and responsive, No focal deficits noted - VTE Documentation of Mechanical Device: Intermittent pneumatic compression device Results 02/19/18 02:32 02/18/18 04:13 Lab Results, Last 24 hours 02/19/18 02:32 WBC 12.7 H Hgb 14.5 Hct 43.6 Plt Count 268 Consult Discharge Plan - Plan Referrals: Ayo Hooper DO [Partnered Physician] - (OFFICE WILL CALL PATIENT AT HOME WITH FOLLOW UP APPOINTMENT) Mario Burden MD [Partnered Physician] - 03/29/18 1:15 pm [facility]PC[facility] [Primary Care Provider] - 02/24/18 1:30 pm (YOU WILL BE SEEN IN THE DISCHARGE CLINIC FOR THIS APPOINTMENT. IT IS LOCATED IN [place] [id number].)
--- NOTE | 2018-02-19 10:46 | Discharge Summary ---
- NOTES TO OUTPATIENT PROVIDER Notes to Outpatient Provider: s/p AAA repair, started on anticoagulation with Eliquis for a.fib; Date of Encounter: 02/19/18 Time of Encounter: 10:43 - Discharge Diagnosis (1) Abdominal aortic aneurysm (AAA) without rupture Priority: Primary Status: Chronic (2) Community acquired pneumonia Priority: Primary Status: Acute Qualifiers: Laterality: left Lung location: lower lobe of lung Qualified Code(s): J18.1 - Lobar pneumonia, unspecified organism (3) Acute exacerbation of chronic obstructive airways disease Priority: Primary Status: Resolved (4) Kidney stone on left side Priority: Primary Status: Acute (5) A-fib Priority: Primary Status: Acute Qualifiers: Atrial fibrillation type: paroxysmal Qualified Code(s): I48.0 - Paroxysmal atrial fibrillation (6) CHF (congestive heart failure) Priority: Primary Status: Acute Qualifiers: Heart failure type: systolic Heart failure chronicity: acute Qualified Code(s): I50.21 - Acute systolic (congestive) heart failure (7) Essential hypertension Priority: Secondary Status: Chronic (8) NSTEMI (non-ST elevated myocardial infarction) Priority: Primary Status: Acute Hospital course: Mr. Jiménez is a 67 year old male with history of tobacco abuse, was initially admitted with back pain and weakness. He was noted to have new onset atrial fibrillation, started on beta danny and anticoagulation with IV heparin drip, subsequently changed to oral Eliquis at discharge. He was also noted to have pneumonia and acute exacerbation of COPD, was treated with IV antibiotics, steroids and had significant clinical improvement. CT angiogram of abdomen/pelvis shows 5.2 x 5.1 cm aneurysm of the infrarenal abdominal aorta. Vascular surgery was consulted and patient underwent endograft repair of abdominal aortic aneurysm. He was also noted to have a staghorn calculus of left kidney, urology was consulted, recommended outpatient follow-up. Urine culture subsequently showed no significant growth. Patient was noted to have uncontrolled hypertension during this admission, remained in on IV the Cardizem drip with titration of by mouth meds and his blood pressure is currently stable. He is otherwise medically stable for discharge with outpatient PCP and cardiology follow-up. Discharge discussed with: patient, family - Time Spent with Patient Total time spent providing and/or coordinating discharge services: Greater than 30 minutes (45 min) - Discharge Medications Prescriptions: Nitroglycerin 0.4 mg SL Q5MIN PRN #30 tab.subl PRN Reason: Chest Pain amLODIPine [Norvasc] 5 mg PO DAILY #30 tablet Aspirin Enteric Coated [Aspirin EC] 81 mg PO DAILY #30 tablet. Atorvastatin [Lipitor] 40 mg PO HS #30 tablet Furosemide [Lasix] 20 mg PO BIDDIURETIC #60 tablet Lisinopril [Zestril] 2.5 mg PO DAILY #30 tablet Metoprolol XL (24 HR) Succ [Toprol Xl] 100 mg PO DAILY #60 tab.er.24h Home Medications: Naproxen Sodium [Aleve] 220 mg PO BID PRN 02/10/18 [History] Apixaban [Eliquis] 5 mg PO BID tablet 02/19/18 [Rx] Aspirin Enteric Coated [Aspirin EC] 81 mg PO DAILY #30 tablet. 02/19/18 [Rx] Atorvastatin [Lipitor] 40 mg PO HS #30 tablet 02/19/18 [Rx] Furosemide [Lasix] 20 mg PO BIDDIURETIC #60 tablet 02/19/18 [Rx] Lisinopril [Zestril] 2.5 mg PO DAILY #30 tablet 02/19/18 [Rx] Metoprolol XL (24 HR) Succ [Toprol Xl] 100 mg PO DAILY #60 tab.er.24h 02/19/18 [ Rx] Nitroglycerin 0.4 mg SL Q5MIN PRN #30 tab.subl 02/19/18 [Rx] amLODIPine [Norvasc] 5 mg PO DAILY #30 tablet 02/19/18 [Rx] Allergies/Adverse Reactions: 3 Allergy/AdvReac Type Severity Reaction Status Date / Time No Known Allergies Allergy Verified 02/10/18 07:57 Date of admission: 02/10/18 07:46 [facility] care physician: [facility] Consults: 02/12/18 13:18 Consult to Cardiac Rehabilitation-Phase1 [CONS] Routine Comment: Reason for Consult: NSTEMI, no PCI Call Completed: No 02/12/18 17:59 Consult to [facility] Glazer [CONS] Routine Reason for SW Consult: Prescription coverage for Eliquis Discharging clinician: Patricia Mae Anticipated date of discharge: 02/19/18 - Constitutional Vitals: Temp Pulse Resp BP Pulse Ox 98.8 F 90 17 143/90 95 02/19/18 07:05 02/19/18 07:05 02/19/18 07:05 02/19/18 07:05 02/19/18 07:05 General appearance: Present: A&O X 3, answers questions appropriately - Cardiovascular Cardiovascular exam: Present: irregular rhythm, +S1, +S2. Absent: diastolic murmur, gallop, rubs, systolic murmur - Patient Status Disposition: Home, Self-Care Condition: Good Functional capacity at discharge: independent ambulation Overall status at discharge: patient is progressing back to baseline - Discharge Instructions Instructions: Atrial Fibrillation (GEN), Endovascular Abdominal Aortic Aneurysm Repair (DC) Follow Up With: Ayo Hooper DO [Partnered Physician] - (OFFICE WILL CALL PATIENT AT HOME WITH FOLLOW UP APPOINTMENT) Mario Burden MD [Partnered Physician] - 03/29/18 1:15 pm [facility]PCP [Primary Care Provider] - 02/24/18 1:30 pm (YOU WILL BE SEEN IN THE DISCHARGE CLINIC FOR THIS APPOINTMENT. IT IS LOCATED IN [place] [address].) Forms: ED Satisfaction Letter Additional Instructions: NO DRIVING FOR 1 WEEK. NO LIFTING MORE THAN 10 LBS FOR 1 WEEK. NO TUB BATH, SWIMMING POOL, OR HOT TOB UNTIL INCISIONS [place]. - Diet and Activity Activity: resume usual activities as tolerated Diet: low fat, low cholesterol, low salt diet - VTE Documentation of Mechanical Device: Intermittent pneumatic compression device
== END 2018-02-19 11:58 | disposition home or self-care (01) | DRG 268 ==
LOC: 2SOUTHHOLD 21:54 → EMEROO 21:54 → SUATTDRO 02-10 01:32 → 2SOUTHHOLD 02-10 02:55 → SUATTDRO 02-10 07:46 → 2NNU 02-11 16:09
PROVIDERS: ADMIT Internal Medicine; ATTEND Internal Medicine